=== PATIENT | female | born 1960 | race American Indian/Alaskan Native ===

== ENCOUNTER 2016-10-02 14:04 | Outpatient (CLI) | payer MEDICARE ==
--- NOTE | 2016-10-02 16:53 | Cat Scan Report ---
CT CHEST WITHOUT CONTRAST: INDICATION: Chest pain. COMPARISON: None similar. FINDINGS: Noncontrast chest CT demonstrates normal heart size. No effusions. Few coronary calcifications. Anemia not excluded. Patent central airway. Assessment of the great vessels and for detecting subtle lymphadenopathy limited due to lack of IV contrast. No aortic aneurysm, however. No definite size significant adenopathy, to the extent assessed. Few small bilateral axillary lymph nodes measure up to approximately 1.3 cm, axial image 24, series 3. Normal imaged thyroid. Slight increased AP chest diameter. Mild scarring in both upper lobes inferiorly. Slight lower lobe bronchiectasis, right more than left. Approximately 6 mm right apical peripheral bulla. No focal suspicious lung masses. Nonspecific distal esophageal wall thickening, not excluded for gastroesophageal reflux and/or hiatal hernia, amongst others. Few upper abdominal images demonstrate absent gallbladder and an incompletely imaged approximately 3.3 cm partly exophytic dominant right renal mass inferiorly as on axial image 262, series 2 with attenuations ranging between 15-33 HU. Approximately 1.3 cm left upper renal cortical simple cyst also noted. Slight lower thoracic spine degenerative spurring to the right. CONCLUSION: 1. No acute chest CT abnormality on this unenhanced exam with few incidental findings, including suspected COPD, as above. 2. Various other findings, as above, including bilateral renal lesions, possibly complex and not excluded neoplastic on the right. Thank you for the opportunity to participate in this patient's care.
--- NOTE | 2016-10-03 14:01 | Cat Scan Report ---
CT OF THE ABDOMEN WITHOUT CONTRAST: HISTORY: Abdominal pain. FINDINGS: Comparison is made to a previous study on May 10, 2014. Sensitivity is diminished without intravenous and oral contrast. The liver and spleen appear normal in size and configuration with no focal abnormalities. The pancreas is normal. The adrenal glands are unremarkable. A hypodense mass in the lower pole of the right kidney has increased in size now measuring 4.2 cm in diameter as opposed to 2.8 cm on the previous study. A smaller hypodense mass in the cortex of the lower pole measures less than 1 cm and is unchanged. A 1.5 cm hypodense mass in the upper pole of the left kidney is stable. There are no other renal abnormalities. There is no adenopathy within the retroperitoneum. IMPRESSION: Increase in size in a hypodense mass in the lower pole of the right kidney. Smaller hypodense masses in the lower pole of the right kidney and in the left kidney are stable. These probably represent cysts but further evaluation of the right renal mass is recommended either with CT examination with IV contrast, MRI with and without contrast or renal ultrasound.
== END 2016-10-02 14:05 | disposition home or self-care (01) ==
LOC: CT 14:04
PROVIDERS: ATTEND Family Medicine
DX: N28.1 Cyst of kidney, acquired (principal); J47.9 Bronchiectasis, uncomplicated; I25.10 Atherosclerotic heart disease of native coronary artery without angina pectoris; N28.89 Other specified disorders of kidney and ureter; R10.9 Unspecified abdominal pain; R07.9 Chest pain, unspecified; Z90.49 Acquired absence of other specified parts of digestive tract
CPT/HCPCS: 36415; 71250; 74150; 82565; 84520

== ENCOUNTER 2017-06-18 11:19 | Outpatient (CLI) | payer MEDICARE ==
--- NOTE | 2017-06-18 14:01 | Cat Scan Report ---
CT of the abdomen and pelvis without contrast. History: Hematuria. Findings: Comparison is made to the previous study on October 02, 2016. The liver and spleen are normal in size and configuration with no focal abnormalities. The spleen is unremarkable. The pancreas and adrenal glands are normal. Since the previous study, the round hypodense mass which is seen in the lateral aspect of the right kidney demonstrates marked interval change with somewhat irregular contour, marked decrease in size, and the presence of multiple amorphous hyperdensity/calcification. There are reactive changes in the perinephric fat with thickening of Gerota's fascia. A 1.4 cm in diameter hypodense mass in the upper pole of the left kidney is unchanged. There no pelvic masses or abnormal fluid collections. There is no evidence of appendicitis. Impression: 1. Marked interval change in the appearance of a previously noted right renal mass which has decreased in size and changed in shape with multiple amorphous and curvilinear calcifications. They're associated reactive changes in Gerota's fascia and the perinephric fat. This most likely represents interval rupture of a hemorrhagic cyst with calcifications and perinephric reactive changes. I would recommend a followup study in 6 months to confirm stability. 2. Stable left renal cyst.
== END 2017-06-18 11:20 | disposition home or self-care (01) ==
LOC: CT 11:19
PROVIDERS: ATTEND Family Medicine
DX: N28.1 Cyst of kidney, acquired (principal); N28.89 Other specified disorders of kidney and ureter; T14.8 Other injury of unspecified body region; X58.XXXA Exposure to other specified factors, initial encounter; Y93.9 Activity, unspecified; Y92.89 Other specified places as the place of occurrence of the external cause; Y99.8 Other external cause status
CPT/HCPCS: 74176

== ENCOUNTER 2017-08-17 05:37 | Inpatient (IN) | payer MEDICARE ==
[2017-08-17] MEDS ORDERED: DILAUDID IV ONE (06:04)
[2017-08-17] MEDS ORDERED: ZOFRAN ONE (06:58)
[2017-08-17] MEDS ORDERED: NACL 0.9% 1000 ML 1,000 ML ONE (06:59)
[2017-08-17] MEDS ORDERED: NACL 0.9% 1000 ML 1,000 ML IV ONE ×2 (07:13→08:49)
[2017-08-17] MEDS ORDERED: ZOFRAN IV ONE (07:13)
[2017-08-17 07:23] LABS: Basophils % (Auto) 0.9 % (0.0-1.8); Hematocrit 28.2 % (30.3-42.9); Hemoglobin 8.6 gm/dl (10.1-14.3); Mean Corpuscular HGB Conc 31 % (30-34); Mean Corpuscular Hemoglobin 22 pg (28-32); Mean Corpuscular Volume 71 fl (79-97); Platelet Count 232 K/mm3 (140-440); Red Blood Count 3.99 M/mm3 (3.65-5.03)
[2017-08-17 07:38] LABS: Albumin/Globulin Ratio 0.7 %; Bilirubin,Total 0.3 mg/dL (0.1-1.2); Calcium 8.2 mg/dL (8.4-10.2); Chloride 103.1 mmol/L (98-107); Potassium 4.2 mmol/L (3.6-5.0); Total Protein 7.2 g/dL (6.3-8.2)
[2017-08-17] MEDS ORDERED: SUBLIMAZE IV ONE (08:39)
--- NOTE | 2017-08-17 08:47 | Emergency Department Report ---
HPI - General Chief Complaint: Abdominal Pain Time Seen by Provider: 08/17/17 08:32 - HPI HPI: Room 6 The patient is a 57-year-old female presenting with a chief complaint of abdominal pain. She states her symptoms began last night at 23:30 with epigastric aching which felt similar to her small bowel obstruction she had 3 years ago. Patient is to nausea and vomiting but denies diarrhea or fever. Patient denies chest pain. The patient currently feels her abdominal pain score of 8/10 Location: Abdomen Duration: Constant since last night Quality: Aching Severity:8/10 Modifying factors: [see above] Context: [see above] Mode of transportation: [not driving] ED Past Medical Hx - Past Medical History Previous Medical History?: Yes Hx Hypertension: Yes Hx Diabetes: Yes Additional medical history: lupus - Surgical History Past Surgical History?: Yes Hx Cholecystectomy: Yes Additional Surgical History: COLON RESECTION secondary to "not working". HYSTERECTOMY, right partial nephrectomy secondary to benign mass - Social History Smoking Status: Former Smoker (occasional) Substance Use Type: None - Medications Home Medications: Home Medications Medication Instructions Recorded Confirmed Last Taken Type Clonidine HCl [Catapres] 0.3 mg PO BID 09/08/13 09/14/16 01/20/15 History Cyclobenzaprine HCl [FLEXERIL] 10 mg PO BID 09/08/13 09/14/16 01/19/15 History Esomeprazole Magnesium [NexIUM] 40 mg PO QDAY 09/08/13 09/14/16 01/19/15 History Hydroxychloroquine [Plaquenil] 200 mg PO DAILY 09/08/13 09/14/16 01/19/15 History Methadone [Dolophine] 10 mg PO DAILY 09/08/13 09/14/16 01/19/15 History Zolpidem [Ambien] 10 mg PO HS PRN 09/08/13 09/14/16 01/19/15 History amLODIPine [Norvasc] 10 mg PO DAILY 09/08/13 09/14/16 01/19/15 History predniSONE [Deltasone] 10 mg PO DAILY 09/08/13 09/14/16 01/19/15 History HYDROcodone/APAP 5-325 [Martin 1 each PO Q6HR PRN #20 tablet 05/10/14 Unknown Rx 5/325] Promethazine [Phenergan] 25 mg PO Q6H PRN #20 tablet 05/10/14 Unknown Rx Aspirin EC [Aspirin Enteric Coated 81 mg PO DAILY 01/20/15 09/14/16 01/19/15 History TAB] Carvedilol 25 mg PO BID 01/20/15 09/14/16 01/19/15 History Insulin Regular, Human [HumuLIN R] 2 units SQ BID 01/20/15 09/14/16 01/19/15 History Hydralazine HCl [Apresoline TAB] 50 mg PO Q8HR 09/14/16 09/14/16 Unknown History Pravastatin Sodium [Pravastatin] 10 mg PO QHS 09/14/16 09/14/16 Unknown History Promethazine [Phenergan TAB] 25 mg PO Q6HR PRN 09/14/16 09/14/16 Unknown History oxyCODONE /ACETAMINOPHEN [Percocet 1 tab PO Q6HR PRN 09/14/16 09/14/16 Unknown History 5/325 mg] ED Review of Systems ROS: Stated complaint: ABD PAIN Other details as noted in HPI Constitutional: denies: fever Cardiovascular: denies: chest pain Gastrointestinal: abdominal pain, nausea, vomiting. denies: diarrhea Physical Exam - Physical Exam Vital Signs: Vital Signs 08/17/17 08/17/17 08/17/17 05:50 05:53 06:00 Temperature 98.4 F Pulse Rate 66 Respiratory 20 20 Rate Blood Pressure 197/90 197/90 180/93 O2 Sat by Pulse 97 97 Oximetry Physical Exam: GENERAL: The patient is well-developed well-nourished female lying on stretcher not appearing to be in acute distress. [] HEENT: Normocephalic. Atraumatic. Extraocular motions are intact. Patient has moist mucous membranes. NECK: Supple. Trachea midline CHEST/LUNGS: Clear to auscultation. There is no respiratory distress noted. HEART/CARDIOVASCULAR: Regular. There is no tachycardia. There is no gallop rub or murmur. ABDOMEN: Abdomen is soft, with tenderness to palpation in the midepigastric region. Patient has normal bowel sounds. There is no abdominal distention. SKIN: There is no rash. There is no edema. There is no diaphoresis. NEURO: The patient is awake, alert, and oriented. The patient is cooperative. The patient has normal speech MUSCULOSKELETAL: There is no evidence of acute injury. ED Course Vital Signs 08/17/17 08/17/17 08/17/17 05:50 05:53 06:00 Temperature 98.4 F Pulse Rate 66 Respiratory 20 20 Rate Blood Pressure 197/90 197/90 180/93 O2 Sat by Pulse 97 97 Oximetry - Consultations Consultation #1: 08/17/17 09:51 Surgery paged ED Medical Decision Making - Lab Data Result diagrams: 08/17/17 07:10 08/17/17 07:10 - Radiology Data Radiology results: report reviewed (CT abdomen and pelvis), image reviewed (CT abdomen and pelvis) CT scan of the abdomen and pelvis without IV contrast: Compare to 06/18/17 and 10/02/16. History: Epigastric abdominal pain nausea and vomiting. Findings: Normal lung bases. No pleural or pericardial effusion. Normal liver spleen and pancreas. Gallbladder not visualized. Normal adrenals. Bilaterally there is no significant interval change noted in the kidney parenchyma and the perirenal tissues. Normal bladder. No free intraperitoneal fluid or. No evidence of adenopathy. Normal stomach and duodenum a small sliding hiatal hernia. Fluid-filled mildly distended loops of small bowel are identified at the right lumbar area. No thickening of the wall. There is mild mesenteric stranding with minimal free fluid in the mesentery noted in that region. There is distended loops of colon with air and fecal matter. Most pronounced in the rectosigmoid. No evidence of appendicitis or diverticulitis. Impression: No significant interval change at the kidney parenchyma and perineural tissue compatible previous study. Multiple causes for small bowel findings including inflammatory bowel disease, early ischemic bowel or incomplete small bowel obstruction. Transcribed By: PTP Dictated By: TATI CASH MD Electronically Authenticated By: TATI CASH MD Signed Date/Time: 08/17/17930 DD/ 3 TD/TT: 08/17/17930 - Differential Diagnosis small bowel obstruction, gastritis, pancreatitis, peptic ulcer disease Critical care attestation.: If time is entered above; I have spent that time in minutes in the direct care of this critically ill patient, excluding procedure time. ED Disposition Clinical Impression: Acute abdominal pain, Partial small bowel obstruction, Nausea & vomiting, Acute renal insufficiency Disposition: OP ADMIT IP TO THIS HOSP Is pt being admited?: Yes Does the pt Need Aspirin: No Condition: Fair Instructions: Abdominal Pain (ED) Referrals: PRIMARY CARE,MD [Primary Care Provider] - 3-5 Days Time of Disposition: 09:58 (hospitalist (Dr Chaparro) notified)
[2017-08-17 09:15] LABS: Bilirubin,Urine NEG (Negative); Blood,Urine NEG (Negative); Ketones,Urine NEG (Negative); Leukocyte Esterase,Urine NEG (Negative); Nitrite,Urine NEG (Negative); Urobilinogen,Urine < 2.0 mg/dL (<2.0); WBC,Urine < 1.0 /HPF (0.0-6.0)
[2017-08-17] MEDS ORDERED: CATAPRES PO ONE (09:32)
--- NOTE | 2017-08-17 09:37 | Cat Scan Report ---
CT scan of the abdomen and pelvis without IV contrast: Compare to 06/18/17 and 10/02/16. History: Epigastric abdominal pain nausea and vomiting. Findings: Normal lung bases. No pleural or pericardial effusion. Normal liver spleen and pancreas. Gallbladder not visualized. Normal adrenals. Bilaterally there is no significant interval change noted in the kidney parenchyma and the perirenal tissues. Normal bladder. No free intraperitoneal fluid or. No evidence of adenopathy. Normal stomach and duodenum a small sliding hiatal hernia. Fluid-filled mildly distended loops of small bowel are identified at the right lumbar area. No thickening of the wall. There is mild mesenteric stranding with minimal free fluid in the mesentery noted in that region. There is distended loops of colon with air and fecal matter. Most pronounced in the rectosigmoid. No evidence of appendicitis or diverticulitis. Impression: No significant interval change at the kidney parenchyma and perineural tissue compatible previous study. Multiple causes for small bowel findings including inflammatory bowel disease, early ischemic bowel or incomplete small bowel obstruction.
--- NOTE | 2017-08-17 12:38 | History and Physical Report ---
History of Present Illness Date of examination: 08/17/17 Date of admission: 08/17/17 09:57 Chief complaint: Abdominal pain History of present illness: 57-year-old -M[place] female with past medical history significant for hypertension, diabetes, lupus presented to the emergency department with complaints of abdominal pain started last night, the pain is sharp, progressively worse 10 out of 10 in intensity, with no radiation, not associated diarrhea or constipation. Patient is complaining nausea and vomiting of yellowish material 4. Patient had a bowel movement after she presented to the emergency department. Patient denied fever, chills, chest pain. REVIEW OF SYSTEMS: GENERAL: no weight change, no fatigue, no fever HEAD: no head ache EYES: no blurry vision, no acute visual loss EARS: no hearing loss, no discharge, no earache NOSE: no stuffiness, no sneezing, no discharge MOUTH, THROAT AND NECK: no bleeding gums, no sore throat, no swollen neck CARDIAC: no palpitations, no dyspnea on exertion, no orthopnea, no PND, no edema , no chest pain RESPIRATORY: no shortness of breath, no wheeze, no cough, no sputum, no hemoptysis, no asthma GI: As stated in the HPI. URINARY: no change in frequency, no urgency, no polyuria, no hematuria, no incontinence MUSCULOSKELETAL: no muscle weakness, no pain, no joint stiffness NEUROLOGIC: no loss of sensation/numbness, no tingling, no tremors, no weakness/ paralysis HEMATOLOGIC: no anemia, no easy bruising SKIN: no rashes ENDOCRINE: no heat/cold intolerance, no polyuria, no polydipsia, no thyroid problems, + diabetes PSYCHIATRIC: no anxiety, no depression, no suicidal ideations Past History Past Medical History: diabetes, hypertension, other (Lupus) Past Surgical History: cholecystectomy, hysterectomy, bowel surgery, Other ( nephrectomy) Social history: denies: smoking, alcohol abuse, prescription drug abuse, IV drug use, full code Family history: no significant family history Medications and Allergies Allergies Allergy/AdvReac Type Severity Reaction Status Date / Time VICTORINO Inhibitors Allergy Unknown Verified 08/17/17 06:00 Sulfa (Sulfonamide AdvReac Severe TONGUE Verified 08/17/17 06:00 Antibiotics) SWELLS Home Medications Medication Instructions Recorded Confirmed Last Taken Type Clonidine HCl [Catapres] 0.3 mg PO BID 12/09/14/16 01/20/15 History Cyclobenzaprine HCl [FLEXERIL] 10 mg PO BID 09/08/13 09/14/16 01/19/15 History Esomeprazole Magnesium [NexIUM] 40 mg PO QDAY 09/08/13 09/14/16 01/19/15 History Hydroxychloroquine [Plaquenil] 200 mg PO DAILY 09/08/13 09/14/16 01/19/15 History Methadone [Dolophine] 10 mg PO DAILY 09/08/13 09/14/16 01/19/15 History Zolpidem [Ambien] 10 mg PO HS PRN 09/08/13 09/14/16 01/19/15 History amLODIPine [Norvasc] 10 mg PO DAILY 09/08/13 09/14/16 01/19/15 History predniSONE [Deltasone] 10 mg PO DAILY 09/08/13 09/14/16 01/19/15 History HYDROcodone/APAP 5-325 [Kopperl 1 each PO Q6HR PRN #20 tablet 05/10/14 Unknown Rx 5/325] Promethazine [Phenergan] 25 mg PO Q6H PRN #20 tablet 05/10/14 Unknown Rx Aspirin EC [Aspirin Enteric Coated 81 mg PO DAILY 01/20/15 09/14/16 01/19/15 History TAB] Carvedilol 25 mg PO BID 01/20/15 09/14/16 01/19/15 History Insulin Regular, Human [HumuLIN R] 2 units SQ BID 01/20/15 09/14/16 01/19/15 History Hydralazine HCl [Apresoline TAB] 50 mg PO Q8HR 09/14/16 09/14/16 Unknown History Pravastatin Sodium [Pravastatin] 10 mg PO QHS 09/14/16 09/14/16 Unknown History Promethazine [Phenergan TAB] 25 mg PO Q6HR PRN 09/14/16 09/14/16 Unknown History oxyCODONE /ACETAMINOPHEN [Percocet 1 tab PO Q6HR PRN 09/14/16 09/14/16 Unknown History 5/325 mg] Active Meds: Active Medications Clonidine HCl (Catapres-Tts Patch) 0.3 mg TD QWEEK SKYLER Hydralazine HCl (Apresoline) 20 mg IV Q4HR PRN PRN Reason: Hypertension Sodium Chloride (Nacl 0.9% 1000 Ml) 1,000 mls @ 125 mls/hr IV ONCE ONE Stop: 08/17/17 16:48 Last Admin: 08/17/17 09:50 Dose: 125 mls/hr Lactated Ringer's (Lactated Ringers) 2,000 mls @ 100 mls/hr IV DIRECT SKYLER Exam - Physical Exam Narrative exam: Not in cardiopulmonary distress. The patient appeared well nourished and normally developed. Vital signs as documented. Head exam is unremarkable. No scleral icterus . Neck is without jugular venous distension, thyromegaly, or carotid bruits. Lungs are clear to auscultation. Cardiac exam reveals regular rate and Rhythm. First and second heart sounds normal. No murmurs, rubs or gallops. Abdominal exam reveals mild abdominal tenderness, with no guarding or rigidity. Extremities are nonedematous and both femoral and pedal pulses are normal. ART EDUCATOR: Alert and oriented 3. No focal weakness. - Constitutional Vitals: Temp Pulse Resp BP Pulse Ox 98.4 F 71 12 171/82 97 08/17/17 05:53 08/17/17 09:40 08/17/17 11:32 08/17/17 09:55 08/17/17 06:00 Results - Labs CBC & Chem 7: 08/17/17 07:10 08/17/17 07:10 Labs: Laboratory Last Values WBC 5.0 K/mm3 (4.5-11.0) 08/17/17 07:10 RBC 3.99 M/mm3 (3.65-5.03) 08/17/17 07:10 Hgb 8.6 gm/dl (10.1-14.3) L 08/17/17 07:10 Hct 28.2 % (30.3-42.9) L 08/17/17 07:10 MCV 71 fl (79-97) L 08/17/17 07:10 MCH 22 pg (28-32) L 08/17/17 07:10 MCHC 31 % (30-34) 08/17/17 07:10 RDW 20.0 % (13.2-15.2) H 08/17/17 07:10 Plt Count 232 K/mm3 (140-440) 08/17/17 07:10 Lymph % (Auto) 12.0 % (13.4-35.0) L 08/17/17 07:10 Payne % (Auto) 12.4 % (0.0-7.3) H 08/17/17 07:10 Eos % (Auto) 1.0 % (0.0-4.3) 08/17/17 07:10 Baso % (Auto) 0.9 % (0.0-1.8) 08/17/17 07:10 Lymph # 0.6 K/mm3 (1.2-5.4) L 08/17/17 07:10 Payne # 0.6 K/mm3 (0.0-0.8) 08/17/17 07:10 Eos # 0.0 K/mm3 (0.0-0.4) 08/17/17 07:10 Baso # 0.0 K/mm3 (0.0-0.1) 08/17/17 07:10 Seg Neutrophils % 73.7 % (40.0-70.0) H 08/17/17 07:10 Seg Neutrophils # 3.7 K/mm3 (1.8-7.7) 08/17/17 07:10 Sodium 138 mmol/L (137-145) 08/17/17 07:10 Potassium 4.2 mmol/L (3.6-5.0) 08/17/17 07:10 Chloride 103.1 mmol/L (98-107) 08/17/17 07:10 Carbon Dioxide 24 mmol/L (22-30) 08/17/17 07:10 Anion Gap 15 mmol/L 08/17/17 07:10 BUN 25 mg/dL (7-17) H 08/17/17 07:10 Creatinine 2.0 mg/dL (0.7-1.2) H 08/17/17 07:10 Estimated GFR 31 ml/min 08/17/17 07:10 BUN/Creatinine Ratio 13 % 08/17/17 07:10 Glucose 129 mg/dL (65-100) H 08/17/17 07:10 Lactic Acid 0.50 mmol/L (0.7-2.0) L 08/17/17 07:15 Calcium 8.2 mg/dL (8.4-10.2) L 08/17/17 07:10 Total Bilirubin 0.30 mg/dL (0.1-1.2) 08/17/17 07:10 AST 13 units/L (5-40) 08/17/17 07:10 ALT 6 units/L (7-56) L 08/17/17 07:10 Alkaline Phosphatase 105 units/L (35-129) 08/17/17 07:10 Total Protein 7.2 g/dL (6.3-8.2) 08/17/17 07:10 Albumin 3.0 g/dL (3.9-5) L 08/17/17 07:10 Albumin/Globulin Ratio 0.7 % 08/17/17 07:10 Lipase 43 units/L (13-60) 08/17/17 07:10 Urine Color Yellow (Yellow) 08/17/17 09:06 Urine Turbidity Clear (Clear) 08/17/17 09:06 Urine pH 7.0 (5.0-7.0) 08/17/17 09:06 Ur Specific Marlow 1.013 (1.003-1.030) 08/17/17 09:06 Urine Protein 100 mg/dl mg/dL (Negative) 08/17/17 09:06 Urine Glucose (UA) Neg mg/dL (Negative) 08/17/17 09:06 Urine Ketones Neg mg/dL (Negative) 08/17/17 09:06 Urine Blood Neg (Negative) 08/17/17 09:06 Urine Nitrite Neg (Negative) 08/17/17 09:06 Urine Bilirubin Neg (Negative) 08/17/17 09:06 Urine Urobilinogen < 2.0 mg/dL (<2.0) 08/17/17 09:06 Ur Leukocyte Esterase Neg (Negative) 08/17/17 09:06 Urine WBC (Auto) < 1.0 /HPF (0.0-6.0) 08/17/17 09:06 Urine RBC (Auto) 1.0 /HPF (0.0-6.0) 08/17/17 09:06 U Epithel Cells (Auto) 2.0 /HPF (0-13.0) 08/17/17 09:06 - Imaging and Cardiology US - abdomen: report reviewed (partial small bowel obstruction) Assessment and Plan Assessment and plan: Partial small bowel obstruction Acute kidney injury Uncontrolled Hypertension Diabetes mellitus (hyperglycemia) History of lupus - Patient is on IV fluids, NG tube, pain control, surgery consulted, nothing by mouth - Sliding scale insulin for diabetes, and by mouth medications to IV DVT prophylaxis - SCD because it may be a possibility of surgery Disposition - Admit to surgical floor Advance Directives: Yes VTE prophylaxis?: Mechanical Reason for no VTE Prophylaxis: Surgical contraindication Plan of care discussed with patient/family: Yes
[2017-08-17] MEDS ORDERED: D50W (25GM) Vial IV PRN (13:00)
[2017-08-17] MEDS: LACTATED RINGERS 2,000 ML IV SCH (13:46)
[2017-08-17] MEDS: DILAUDID IV PRN ×2 (13:46→20:57)
[2017-08-17] MEDS: CATAPRES-TTS PATCH TD SCH (14:11)
--- NOTE | 2017-08-17 14:40 | XRay Report ---
FINAL REPORT EXAM: XR ABDOMEN 1V AP HISTORY: ng tube placement TECHNIQUE: Supine abdomen PRIORS: None. FINDINGS: Nasogastric tube terminates in proximal stomach. It may be further advanced into mid to distal stomach. The bowel gas pattern is nonspecific and nonobstructive. There is some gas within normal caliber small bowel loops and minimal gas scattered in the colon. Pelvic calcifications are probably vascular. In appropriate clinical setting, a distal ureteral stone cannot be entirely excluded. IMPRESSION: Nonspecific, nonobstructive abdomen. Nasogastric tube terminates in proximal stomach. It may be advanced into mid to distal stomach.
--- NOTE | 2017-08-17 15:43 | XRay Report ---
FINAL REPORT EXAM: XR ABDOMEN 1V AP HISTORY: DOBHOFF ADJUSTMENT TECHNIQUE: Supine abdomen PRIORS: 08/17/2017 at 18:58 FINDINGS: The bowel gas pattern is nonspecific and nonobstructive. There is air within normal caliber small bowel loops. There is minimal gas in the colon. Nasogastric tube is unchanged in position; it terminates in proximal stomach. It may be advanced into mid to distal stomach. Pelvic calcifications are likely vascular. IMPRESSION: The nasogastric tube is unchanged in position with tip still in proximal stomach. Suggest further advancement into mid to distal stomach. Nonspecific, nonobstructive abdomen.
[2017-08-17] MEDS: NOVOLOG SUB-Q SCH (16:32)
[2017-08-17] MEDS: ZOFRAN IV PRN (20:56)
[2017-08-18] MEDS: NOVOLOG SUB-Q SCH ×5 (00:17→21:54)
--- NOTE | 2017-08-18 00:26 | Consultation ---
HISTORY OF PRESENT ILLNESS: I was called by Dr. Chaparro to see this patient. She is a 57-year-old black female. She is a known case of hypertension, diabetes mellitus, lupus and multiple abdominal operations. 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 Her CBC showed a white count of 5000, hemoglobin was 8.6. The potassium is 4.2 and the sodium was 138. The creatinine is 2.0. She had a CAT scan that showed evidence of multiple dilated small bowel loops with thickened wall. There were mildly distended as per the radiology note, there is no thickening there. There is some stranding in the base of the mesentery. There are some distended loops of the colon with air and fecal material. These were mainly in the rectosigmoid aspect. PAST MEDICAL HISTORY: The patient had 3 abdominal operations. The first was an open cholecystectomy, the second one was a partial colon resection and a third one she had an exploration of the abdomen as well. She was in this hospital. I saw her here about 3 years ago because of the same problem. This was handled with IV fluids and NG suction. PHYSICAL EXAMINATION: GENERAL: At this point showed a thin, slim black female. She looks older than her stated age. HEAD AND NECK: Negative. BREASTS: Symmetrical. She had a mammogram that was negative. CHEST: Essentially clear. HEART: Sound normal. ABDOMEN: Protuberant, moderately severe tenderness all through a port in the epigastric area. EXTREMITIES: Showed no sign of any edema. IMPRESSION AND PLAN: Abdominal distention with nausea and vomiting with the radiological evidence of dilated small bowel loops with thickened wall, status post cholecystectomy open and partial colon resection as well as partial right nephrectomy from what she told me it was for a tumor there. I had a lengthy talk with the patient and her daughter as I need to keep her in the hospital, keep her n.p.o. with IV fluids and NG suction. We will repeat her KUB in the morning and we will go from there. JOB# [id number] HEIDI/FRAN
[2017-08-18] MEDS: ZOFRAN IV PRN ×3 (04:01→22:00)
[2017-08-18] MEDS: DILAUDID IV PRN ×5 (04:02→22:00)
[2017-08-18] MEDS: LACTATED RINGERS 2,000 ML IV SCH (04:06)
[2017-08-18] MEDS: APRESOLINE IV PRN ×2 (04:13→12:41)
--- NOTE | 2017-08-18 08:56 | XRay Report ---
KUB: SBO. A nasogastric tube is present. There is a generally unremarkable bowel gas pattern with no evidence of bowel dilatation at this time. No free air. No soft tissue mass. Compared to prior examination of August 17 there is diminished small bowel gas. Impression: Resolved small bowel dilatation with nasogastric tube.
[2017-08-18 10:52] LABS: Calcium 8.3 mg/dL (8.4-10.2)
[2017-08-18 10:53] LABS: Chloride 101.3 mmol/L (98-107)
--- NOTE | 2017-08-18 10:54 | XRay Report ---
Portable chest: SOB. The heart and is slightly enlarged. There is mild vascular congestion and mild perivascular edema. There is either mild atelectasis or small effusion at the left lung base. A nasogastric tube is in good position. Impression: Findings consistent with fluid overload.
[2017-08-18] MEDS ORDERED: PNEUMOVAX 23 IM ONE (12:00)
[2017-08-18] MEDS ORDERED: Fluarix Quad 2017-2018(36 MOS+ IM ONE (12:00)
--- NOTE | 2017-08-18 12:43 | Consultation ---
History of Present Illness - Reason for Consult Consult date: 08/18/17 acute renal failure, chronic renal failure - History of Present Illness Ms Barber is a 57 y/o lady with a PMH of HTN, DM, SLE, CKD who sees my associate Dr oRdgers in his CKD clinic who has been admitted to the [facility] with abdominal pain. Pt has also had nausea and vomiting along with low apetite. She denies CP , fever, SHOB, diarrhea, dysuria. She had a BM yesterday. Pt was found to have Acute on CKD on labs in the ER. She feels like she may have gotten dehydrated at home. Pt had a CT abdomen done without contrast that showed partial SBO. ROS: As in HPI otherwise 12 point review of systems -ve Past History Past Medical History: diabetes, hypertension, other (Lupus) Past Surgical History: cholecystectomy, hysterectomy, bowel surgery, Other ( nephrectomy) Social history: denies: smoking, alcohol abuse, prescription drug abuse, IV drug use, full code Family history: no significant family history Medications and Allergies Allergies Allergy/AdvReac Type Severity Reaction Status Date / Time YEVGENIY Inhibitors Allergy Unknown Verified 08/17/17 06:00 Sulfa (Sulfonamide AdvReac Severe TONGUE Verified 08/17/17 06:00 Antibiotics) SWELLS Home Medications Medication Instructions Recorded Confirmed Last Taken Type Clonidine HCl [Catapres] 0.3 mg PO BID 09/08/13 09/14/16 01/20/15 History Cyclobenzaprine HCl [FLEXERIL] 10 mg PO BID 09/08/13 09/14/16 01/19/15 History Esomeprazole Magnesium [NexIUM] 40 mg PO QDAY 09/08/13 09/14/16 01/19/15 History Hydroxychloroquine [Plaquenil] 200 mg PO DAILY 09/08/13 09/14/16 01/19/15 History Methadone [Dolophine] 10 mg PO DAILY 09/08/13 09/14/16 01/19/15 History Zolpidem [Ambien] 10 mg PO HS PRN 09/08/13 09/14/16 01/19/15 History amLODIPine [Norvasc] 10 mg PO DAILY 09/08/13 09/14/16 01/19/15 History predniSONE [Deltasone] 10 mg PO DAILY 09/08/13 09/14/16 01/19/15 History HYDROcodone/APAP 5-325 [[place] 1 each PO Q6HR PRN #20 tablet 05/10/14 Unknown Rx 5/325] Promethazine [Phenergan] 25 mg PO Q6H PRN #20 tablet 05/10/14 Unknown Rx Aspirin EC [Aspirin Enteric Coated 81 mg PO DAILY 01/20/15 09/14/16 01/19/15 History TAB] Carvedilol 25 mg PO BID 01/20/15 09/14/16 01/19/15 History Insulin Regular, Human [HumuLIN R] 2 units SQ BID 01/20/15 09/14/16 01/19/15 History Hydralazine HCl [Apresoline TAB] 50 mg PO Q8HR 09/14/16 09/14/16 Unknown History Pravastatin Sodium [Pravastatin] 10 mg PO QHS 09/14/16 09/14/16 Unknown History Promethazine [Phenergan TAB] 25 mg PO Q6HR PRN 09/14/16 09/14/16 Unknown History oxyCODONE /ACETAMINOPHEN [Percocet 1 tab PO Q6HR PRN 09/14/16 09/14/16 Unknown History 5/325 mg] Active Meds: Active Medications Clonidine HCl (Catapres-Tts Patch) 0.3 mg TD Cueva SKYLER Last Admin: 08/17/17 14:11 Dose: 0.3 mg Dextrose (D50w (25gm) Vial) 25 gm IV PRN PRN PRN Reason: HYPOGLYCEMIA Hydralazine HCl (Apresoline) 20 mg IV Q4H PRN PRN Reason: Hypertension Last Admin: 08/18/17 04:13 Dose: 20 mg Hydromorphone HCl (Dilaudid) 1 mg IV Q4H PRN PRN Reason: Pain , Severe (7-10) Last Admin: 08/18/17 12:30 Dose: 1 mg Sodium Chloride (Nacl 0.9% 1000 Ml) 1,000 mls @ 100 mls/hr IV DIRECT SKYLER Insulin Aspart (Novolog) 0 units SUB-Q ACHS SKYLER PRN Reason: Protocol Last Admin: 08/18/17 07:52 Dose: Not Given Methylprednisolone Sodium Succinate (Solu-Medrol) 20 mg IV Q12HR SKYLER Last Admin: 08/18/17 08:42 Dose: 20 mg Ondansetron HCl (Zofran) 4 mg IV Q8H PRN PRN Reason: N/V unrelieved by Yonis Last Admin: 08/18/17 04:01 Dose: 4 mg Exam - Vital Signs Vital signs: Vital Signs BP 197/90 08/17/17 05:50 - Physical Exam Narrative exam: GE: AAOX3 HEENT: PERRLA Neck: Supple Chest: Coarse BS BL CVS: RRR Abd: BS+ Ext: No cce Psyche: Appropriate mood Results - Lab Results 08/17/17 07:10 08/18/17 09:54 Most recent lab results Calcium 8.3 mg/dL (8.4-10.2) L 08/18/17 09:54 Assessment and Plan Acute Kidney injury possible pre renal: Chronic Kidney disease stage 3: -BL Cr around 1.6 to 1.7 -Possibly may have CKD from from HTN/DM or from lupus. -Has had protein on Urine -May have ARF from pre renal cause from Nausea, vomiting and low apetite. -Change IVFs to NS at 75 cc/hr. Keep close eye on volume status since CXR somewhat congested. Will check TTE for CHF. -Renally dose all meds and avoid nephrotoxic meds -Check Complement levels, Anti DsDNA. UA showed some protein but no red cells. -Pt may need ARB to protect kidney from DM but this can be done outpatient once renal function stable. Partial Small bowel obstruction: -On CT -Had BM yesterday -Per primary and GS -Has NGT Essential hypertension: -Titrate BP meds to keep SBP <130/80 -Avoid ARBs, Yevgeniy inh for now Anemia of chronic disease: -Start Epogen to keep Hg 10-12 -Check Iron panel -Transfuse PRN per primary Hyperkalemia: -Lasix 40 mg IV once -No kayxelate due to SBO for now Diabetes mellitus type 2 on insulin: -On ISS -Per primary Hyperlipidemia, chronic: -Statin -Target LDL <80 Nimesh Dotson MD Nephrology, Hypertension, Dialysis, Transplantation Phone no: [phone]
[2017-08-18 12:48] LABS: Potassium 5.3 mmol/L (3.6-5.0)
--- NOTE | 2017-08-18 12:53 | Progress Note ---
Subjective Narrative: doing better had 4! BMs today , arlen torres . will clamp NG and observ . Objective Vital Signs - 12hr 08/18/17 08/18/17 08/18/17 03:52 03:56 04:02 Temperature 98.1 F Pulse Rate 69 Respiratory 16 16 18 Rate Blood Pressure 188/87 O2 Sat by Pulse 97 Oximetry 08/18/17 08/18/17 08/18/17 04:32 07:53 12:41 Temperature 98.6 F Pulse Rate 82 82 Respiratory 18 18 Rate Blood Pressure 161/72 180/90 O2 Sat by Pulse 93 Oximetry - Labs 08/17/17 07:10 08/18/17 09:54 Diabetes panel 08/18/17 Range/Units 09:54 Sodium 136 L (137-145) mmol/L Potassium 5.3 H D (3.6-5.0) mmol/L Chloride 101.3 (98-107) mmol/L Carbon Dioxide 18 L (22-30) mmol/L BUN 22 H (7-17) mg/dL Creatinine 1.9 H (0.7-1.2) mg/dL Glucose 126 H (65-100) mg/dL Calcium 8.3 L (8.4-10.2) mg/dL Calcium panel 08/18/17 Range/Units 09:54 Calcium 8.3 L (8.4-10.2) mg/dL Pituitary panel 08/18/17 Range/Units 09:54 Sodium 136 L (137-145) mmol/L Potassium 5.3 H D (3.6-5.0) mmol/L Chloride 101.3 (98-107) mmol/L Carbon Dioxide 18 L (22-30) mmol/L BUN 22 H (7-17) mg/dL Creatinine 1.9 H (0.7-1.2) mg/dL Glucose 126 H (65-100) mg/dL Calcium 8.3 L (8.4-10.2) mg/dL Adrenal panel 08/18/17 Range/Units 09:54 Sodium 136 L (137-145) mmol/L Potassium 5.3 H D (3.6-5.0) mmol/L Chloride 101.3 (98-107) mmol/L Carbon Dioxide 18 L (22-30) mmol/L BUN 22 H (7-17) mg/dL Creatinine 1.9 H (0.7-1.2) mg/dL Glucose 126 H (65-100) mg/dL Calcium 8.3 L (8.4-10.2) mg/dL
[2017-08-18] MEDS ORDERED: PROCRIT SUB-Q ONE ×2 (12:57→16:00)
[2017-08-18] MEDS ORDERED: LASIX IV ONE (12:57)
[2017-08-18] MEDS ORDERED: NACL 0.9% 1000 ML 1,000 ML IV SCH ×2 (13:00)
--- NOTE | 2017-08-18 13:46 | Progress Note ---
Assessment and Plan Assessment and plan: Partial small bowel obstruction - On NG tube, Surgery is on board - NPO, IV fluids Acute on chronic kidney injury - slight decrease in creatinine Uncontrolled Hypertension - Continue with IV hydralazine, clonidine patch Diabetes mellitus (hyperglycemia) - SSI - accu check History of lupus - Patient is on solu-medrol DVT prophylaxis - SCD because it may be a possibility of surgery Disposition - continue inpatient care History Interval history: Patient was seen and evaluated this morning, abdominal pain is getting better, but still the patient has abdominal pain. Hospitalist Physical - Physical exam Narrative exam: Not in cardiopulmonary distress. The patient appeared well nourished and normally developed. Vital signs as documented. Head exam is unremarkable. No scleral icterus . Neck is without jugular venous distension, thyromegaly, or carotid bruits. Lungs are clear to auscultation. Cardiac exam reveals regular rate and Rhythm. First and second heart sounds normal. No murmurs, rubs or gallops. Abdominal exam reveals non tender abdomen. Extremities are nonedematous and both femoral and pedal pulses are normal. 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 No focal weakness. - Constitutional Vitals: Temp Pulse Resp BP Pulse Ox 98.6 F 82 18 180/90 93 08/18/17 07:53 08/18/17 12:41 08/18/17 07:53 08/18/17 12:41 08/18/17 07:53 Results - Labs CBC & Chem 7: 08/17/17 07:10 08/18/17 09:54 Labs: Laboratory Last Values WBC 5.0 K/mm3 (4.5-11.0) 08/17/17 07:10 RBC 3.99 M/mm3 (3.65-5.03) 08/17/17 07:10 Hgb 8.6 gm/dl (10.1-14.3) L 08/17/17 07:10 Hct 28.2 % (30.3-42.9) L 08/17/17 07:10 MCV 71 fl (79-97) L 08/17/17 07:10 MCH 22 pg (28-32) L 08/17/17 07:10 MCHC 31 % (30-34) 08/17/17 07:10 RDW 20.0 % (13.2-15.2) H 08/17/17 07:10 Plt Count 232 K/mm3 (140-440) 08/17/17 07:10 Lymph % (Auto) 12.0 % (13.4-35.0) L 08/17/17 07:10 [place] % (Auto) 12.4 % (0.0-7.3) H 08/17/17 07:10 Eos % (Auto) 1.0 % (0.0-4.3) 08/17/17 07:10 Baso % (Auto) 0.9 % (0.0-1.8) 08/17/17 07:10 Lymph # 0.6 K/mm3 (1.2-5.4) L 08/17/17 07:10 [place] # 0.6 K/mm3 (0.0-0.8) 08/17/17 07:10 Eos # 0.0 K/mm3 (0.0-0.4) 08/17/17 07:10 Baso # 0.0 K/mm3 (0.0-0.1) 08/17/17 07:10 Seg Neutrophils % 73.7 % (40.0-70.0) H 08/17/17 07:10 Seg Neutrophils # 3.7 K/mm3 (1.8-7.7) 08/17/17 07:10 Sodium 136 mmol/L (137-145) L 08/18/17 09:54 Potassium 5.3 mmol/L (3.6-5.0) H D 08/18/17 09:54 Chloride 101.3 mmol/L (98-107) 08/18/17 09:54 Carbon Dioxide 18 mmol/L (22-30) L 08/18/17 09:54 Anion Gap 22 mmol/L 08/18/17 09:54 BUN 22 mg/dL (7-17) H 08/18/17 09:54 Creatinine 1.9 mg/dL (0.7-1.2) H 08/18/17 09:54 Estimated GFR 33 ml/min 08/18/17 09:54 BUN/Creatinine Ratio 12 % 08/18/17 09:54 Glucose 126 mg/dL (65-100) H 08/18/17 09:54 POC Glucose 112 (70-105) H 08/18/17 11:57 Lactic Acid 0.50 mmol/L (0.7-2.0) L 08/17/17 07:15 Calcium 8.3 mg/dL (8.4-10.2) L 08/18/17 09:54 Total Bilirubin 0.30 mg/dL (0.1-1.2) 08/17/17 07:10 AST 13 units/L (5-40) 08/17/17 07:10 ALT 6 units/L (7-56) L 08/17/17 07:10 Alkaline Phosphatase 105 units/L (35-129) 08/17/17 07:10 Total Protein 7.2 g/dL (6.3-8.2) 08/17/17 07:10 Albumin 3.0 g/dL (3.9-5) L 08/17/17 07:10 Albumin/Globulin Ratio 0.7 % 08/17/17 07:10 Lipase 43 units/L (13-60) 08/17/17 07:10 Urine Color Yellow (Yellow) 08/17/17 09:06 Urine Turbidity Clear (Clear) 08/17/17 09:06 Urine pH 7.0 (5.0-7.0) 08/17/17 09:06 Ur Specific [place] 1.013 (1.003-1.030) 08/17/17 09:06 Urine Protein 100 mg/dl mg/dL (Negative) 08/17/17 09:06 Urine Glucose (UA) Neg mg/dL (Negative) 08/17/17 09:06 Urine Ketones Neg mg/dL (Negative) 08/17/17 09:06 Urine Blood Neg (Negative) 08/17/17 09:06 Urine Nitrite Neg (Negative) 08/17/17 09:06 Urine Bilirubin Neg (Negative) 08/17/17 09:06 Urine Urobilinogen < 2.0 mg/dL (<2.0) 08/17/17 09:06 Ur Leukocyte Esterase Neg (Negative) 08/17/17 09:06 Urine WBC (Auto) < 1.0 /HPF (0.0-6.0) 08/17/17 09:06 Urine RBC (Auto) 1.0 /HPF (0.0-6.0) 08/17/17 09:06 U Epithel Cells (Auto) 2.0 /HPF (0-13.0) 08/17/17 09:06
[2017-08-18 15:20] LABS: Iron 30 ug/dL (37-170); Total Iron Binding Capacity 248 mcg/dL (250-450)
[2017-08-19] MEDS: DILAUDID IV PRN ×4 (04:40→17:59)
[2017-08-19 05:28] LABS: Basophils % (Auto) 0.3 % (0.0-1.8); Eosinophils % (Auto) 0.1 % (0.0-4.3); Hematocrit 28.6 % (30.3-42.9); Hemoglobin 8.9 gm/dl (10.1-14.3); Mean Corpuscular HGB Conc 31 % (30-34); Mean Corpuscular Hemoglobin 22 pg (28-32); Mean Corpuscular Volume 70 fl (79-97); Platelet Count 255 K/mm3 (140-440); Red Blood Count 4.07 M/mm3 (3.65-5.03); White Blood Count 5.2 K/mm3 (4.5-11.0)
[2017-08-19 05:43] LABS: Calcium 8.4 mg/dL (8.4-10.2); Chloride 98.9 mmol/L (98-107); Potassium 4.1 mmol/L (3.6-5.0)
[2017-08-19] MEDS: ZOFRAN IV PRN ×2 (08:02→16:19)
[2017-08-19] MEDS: APRESOLINE IV PRN ×2 (08:02→19:17)
[2017-08-19] MEDS: NOVOLOG SUB-Q SCH ×3 (08:39→17:15)
--- NOTE | 2017-08-19 09:09 | Query-Kidney Disease ---
Dear Date:__08/19/2017 Tool Keeper/CDS:__May Phone#:__[phone] Exercise your independent professional judgment when responding to query. Questions asked do not imply a particular answer is desired or expected. We greatly appreciate your clarification on this issue. Clinical Documentation States: 57 Year old female was admitted on 08/17/2017 with complaints of abdominal pain. The Hospitalist (Dr. Chaparro) progress note on 08/18/2017 states "Acute on chronic kidney injury - slight decrease in creatinine." Clinical Findings Show: Creatinine: 2.0 GFR: 31 Please Clarify if you mean: Acute Renal Failure with or due to: [ ] Tubular Necrosis [ ] Cortical Necrosis [ ] Shock Kidney [x ] Vasomotor Nephropathy [ ] Lower Tubular Nephrosis [ ] Renal Tubular Stasis [ ] Tubular Nephrosis [ ] Medullary Necrosis [ ] Acute Renal Failure (unspecified) [ ] Other:_Acute on chronic renal failure [ ] Comment/Explanation: Chronic Kidney Disease (Please [place] applicable stage) 3 Stages Description GFR [ ] CKD Stage 1 90 mL/min or more [ ] CKD Stage 2 Mild decrease in Kidney function 60 to 89 mL/min [ x] CKD Stage 3 Moderate decrease in kidney function 30-59 [ ] CKD Stage 4 Severe decrease in kidney function 15-29 [ ] CKD Stage 5 Kidney failure; requiring dialysis or transplantation <15 [ ] ESRD Patient requiring dialysis for > 3 months or kidney transplant irrespective of level of GFR; Applicable for 1 year after kidney transplant [ ] Other: [ ] Comment/Explanation: Present on Admission: [ x] Yes (Y) [ ] Clinically undeterminable (W) [ ] No (N) Please also document response in your Progress Notes and/or Discharge Summary and indicate if the condition was present on admission MTDD
--- NOTE | 2017-08-19 09:24 | XRay Report ---
KUB: 08/19/17 08:00:00 CLINICAL: Followup small bowel obstruction. COMPARISON: 08/18/17 FINDINGS: A few air-filled but nondilated loops of small bowel. Mild colon gas with stool in the distal colon. A nasogastric tube tip is in the distal stomach and unchanged. No pneumoperitoneum. Phleboliths in the pelvis. The bones and soft tissues are normal. IMPRESSION: Negative abdomen.
--- NOTE | 2017-08-19 10:48 | XRay Report ---
AP chest x-ray. History: Dyspnea. Findings: The heart is mildly enlarged with persistent but slightly improved vascular congestion. The pulmonary vessels are more distinct. Impression: Mild improvement as described.
--- NOTE | 2017-08-19 11:43 | Progress Note ---
Assessment and Plan Acute Kidney injury possible pre renal vs cardiorenal. Chronic Kidney disease stage 3: -BL Cr around 1.6 to 1.7 -Possibly may have CKD from from HTN/DM or from lupus. -Has had protein on Urine -CXR congested, TTE shows LVEF 40-45%. IVFs stopped. Lasix diuresis started. -Renally dose all meds and avoid nephrotoxic meds -Ordered Complement levels, Anti DsDNA. UA showed some protein but no red cells. -Pt may need ARB to protect kidney from DM but this can be done outpatient once renal function stable. Partial Small bowel obstruction: -On CT -Per primary and GS -Has NGT Acute on chronic systolic congestive heart failure: -TTE shows LVEF 40-45%, CXR congested. -IVFs stopped, Lasix diuresis started. -Recommend Cardiology consult. Essential hypertension: -Titrate BP meds to keep SBP <130/80 -Avoid ARBs, Yevgeniy inh for now Anemia of chronic disease: -Start Epogen to keep Hg 10-12 -Transfuse PRN per primary Hyperkalemia: -Improved with lasix yesterday. Diabetes mellitus type 2 on insulin: -On ISS -Per primary Hyperlipidemia, chronic: -Statin -Target LDL <80 Plan d/w Dr Chaparro. Nimesh Dotson MD Nephrology, Hypertension, Dialysis, Transplantation Phone no: [phone] Subjective Date of service: 08/19/17 Interval history: Feeling Short of breath. Making urine. Objective - Exam Narrative Exam: GE: AAOX3 HEENT: PERRLA Neck: Supple Chest: BL Crackles CVS: RRR Abd: BS+ Ext: No cce Psyche: Appropriate mood - Vital Signs Vital signs: Vital Signs - 12hr 08/19/17 08/19/17 08/19/17 07:52 08:02 09:03 Temperature 98.4 F Pulse Rate 78 Respiratory 20 Rate Blood Pressure 215/113 210/100 Blood Pressure 180/100 [Right] O2 Sat by Pulse 92 Oximetry - Lab 08/19/17 04:59 08/19/17 04:59 Most recent lab results Calcium 8.4 mg/dL (8.4-10.2) 08/19/17 04:59 Urine Creatinine 53.2 mg/dL (0.1-20.0) H 08/18/17 14:58 Urine Sodium 118 mmol/L 08/18/17 14:58
--- NOTE | 2017-08-19 13:09 | Consultation ---
History of Present Illness Consult date: 08/19/17 Consult reason: congestive heart failure History of present illness: 57-year-old woman who presented to the hospital 2 days ago with small bowel obstruction. She is on conservative management with NG tube suction, and bowel rest. Last night, she began to complain of shortness of breath and orthopnea, chest x-ray this morning revealed cardiomegaly and interstitial pulmonary edema. Cardiac consultation was requested for further assessment. Otherwise, the patient looks and feels well, with no chest pain and no edema. EKG is in normal sinus rhythm, inferior Q waves of an old inferior myocardial infarction, no acute ST or T-wave changes. Echocardiogram demonstrates mild left ventricle systolic dysfunction with ejection fraction 40-45%. Comorbidities include a history of peripheral vascular disease, status post angioplasty of the arterial system in the left lower extremity done 3 years ago. There is no report of significant prior coronary artery disease. A remote cardiac catheterization was negative per patient report, and a recent outpatient thallium stress test was also negative. Additional comorbidities include chronic kidney disease, creatinine currently is 2.0. She has chronic hypertension and diabetes. Past History Past Medical History: diabetes, hypertension, PVD, other (Lupus) Past Surgical History: cholecystectomy, hysterectomy, bowel surgery, Other ( nephrectomy) Social history: denies: smoking, alcohol abuse, prescription drug abuse, IV drug use, full code Family history: no significant family history Medications and Allergies Allergies Allergy/AdvReac Type Severity Reaction Status Date / Time VICTORINO Inhibitors Allergy Unknown Verified 08/17/17 06:00 Sulfa (Sulfonamide AdvReac Severe TONGUE Verified 08/17/17 06:00 Antibiotics) SWELLS Home Medications Medication Instructions Recorded Confirmed Last Taken Type Clonidine HCl [Catapres] 0.3 mg PO BID 09/08/13 08/18/17 01/20/15 History Cyclobenzaprine HCl [FLEXERIL] 10 mg PO BID 09/08/13 08/18/17 01/19/15 History Esomeprazole Magnesium [NexIUM] 40 mg PO QDAY 09/08/13 08/18/17 01/19/15 History Hydroxychloroquine [Plaquenil] 200 mg PO DAILY 09/08/13 08/18/17 01/19/15 History Methadone [Dolophine] 10 mg PO DAILY 09/08/13 08/18/17 01/19/15 History Zolpidem [Ambien] 10 mg PO HS PRN 09/08/13 08/18/17 01/19/15 History amLODIPine [Norvasc] 10 mg PO DAILY 09/08/13 08/18/17 01/19/15 History predniSONE [Deltasone] 10 mg PO DAILY 09/08/13 08/18/17 01/19/15 History HYDROcodone/APAP 5-325 [[place] 1 each PO Q6HR PRN #20 tablet 05/10/14 08/18/17 Unknown Rx 5/325] Promethazine [Phenergan] 25 mg PO Q6H PRN #20 tablet 05/10/14 08/18/17 Unknown Rx Aspirin EC [Aspirin Enteric Coated 81 mg PO DAILY 01/20/15 08/18/17 01/19/15 History TAB] Carvedilol 25 mg PO BID 01/20/15 08/18/17 01/19/15 History Insulin Regular, Human [HumuLIN R] 2 units SQ BID 01/20/15 08/18/17 01/19/15 History Hydralazine HCl [Apresoline TAB] 50 mg PO Q8HR 09/14/16 08/18/17 Unknown History Pravastatin Sodium [Pravastatin] 10 mg PO QHS 09/14/16 08/18/17 Unknown History Promethazine [Phenergan TAB] 25 mg PO Q6HR PRN 09/14/16 08/18/17 Unknown History oxyCODONE /ACETAMINOPHEN [Percocet 1 tab PO Q6HR PRN 09/14/16 08/18/17 Unknown History 5/325 mg] Active Meds: Active Medications Clonidine HCl (Catapres-Tts Patch) 0.3 mg TD Cueva SKYLER Last Admin: 08/17/17 14:11 Dose: 0.3 mg Dextrose (D50w (25gm) Vial) 25 gm IV PRN PRN PRN Reason: HYPOGLYCEMIA Furosemide (Lasix) 40 mg IV 0600,1800 SKYLER Hydralazine HCl (Apresoline) 20 mg IV Q4H PRN PRN Reason: Hypertension Last Admin: 08/19/17 08:02 Dose: 20 mg Hydromorphone HCl (Dilaudid) 1 mg IV Q4H PRN PRN Reason: Pain , Severe (7-10) Last Admin: 08/19/17 09:04 Dose: 1 mg Insulin Aspart (Novolog) 0 units SUB-Q ACHS SKYLER PRN Reason: Protocol Last Admin: 08/19/17 12:09 Dose: Not Given Methylprednisolone Sodium Succinate (Solu-Medrol) 20 mg IV Q12HR [facility] Last Admin: 08/19/17 09:05 Dose: 20 mg Ondansetron HCl (Zofran) 4 mg IV Q8H PRN PRN Reason: N/V unrelieved by Yonis Last Admin: 08/19/17 08:02 Dose: 4 mg Review of Systems Cardiovascular: orthopnea, shortness of breath, no chest pain, no palpitations, no rapid/irregular heart beat, no edema, no syncope, no lightheadedness Gastrointestinal: abdominal pain Physical Examination Vital Signs BP 197/90 08/17/17 05:50 General appearance: no acute distress HEENT: Positive: PERRL Neck: Positive: neck supple Cardiac: Positive: Reg Rate and Rhythm Lungs: Positive: Decreased Breath Sounds Neuro: Positive: Grossly Intact Abdomen: Positive: Decreased Bowel Sounds Female genitourinary: deferred Skin: Positive: Clear Extremities: Absent: edema Results 08/19/17 04:59 08/19/17 04:59 CBC 08/19/17 Range/Units 04:59 WBC 5.2 (4.5-11.0) K/mm3 RBC 4.07 (3.65-5.03) M/mm3 Hgb 8.9 L (10.1-14.3) gm/dl Hct 28.6 L (30.3-42.9) % Plt Count 255 (140-440) K/mm3 Lymph # 0.3 L (1.2-5.4) K/mm3 [place] # 0.2 (0.0-0.8) K/mm3 Eos # 0.0 (0.0-0.4) K/mm3 Baso # 0.0 (0.0-0.1) K/mm3 Comprehensive Metabolic Panel 08/19/17 Range/Units 04:59 Sodium 136 L (137-145) mmol/L Potassium 4.1 D (3.6-5.0) mmol/L Chloride 98.9 (98-107) mmol/L Carbon Dioxide 23 (22-30) mmol/L BUN 25 H (7-17) mg/dL Creatinine 2.0 H (0.7-1.2) mg/dL Glucose 161 H (65-100) mg/dL Calcium 8.4 (8.4-10.2) mg/dL EKG interpretations - Telemetry EKG Rhythm: Sinus Rhythm Assessment and Plan - Patient Problems (1) Pulmonary edema Current Visit: Yes Status: Acute Plan to address problem: 57-year-old white male admitted with small bowel obstruction, 2 days into her hospital course she has developed shortness of breath and pulmonary edema on chest x-ray. EKG is sinus rhythm, old inferior myocardial infarction, no acute ST or T-wave changes. Echocardiogram shows left ventricle ejection fraction 40- 45%. Recommendations: Transfer to telemetry, rule out MA protocol with serial cardiac enzymes. Topical nitrates, headaches, beta blockers and oral antiplatelet therapy. Ultimately, invasive cardiac evaluation will be planned based on renal function assessment.
--- NOTE | 2017-08-19 15:15 | Progress Note ---
Assessment and Plan Assessment and plan: Partial small bowel obstruction - On NG tube, Surgery is on board - NPO, follow the [facility] surgery for recommendations - IV fluid discontinued because of pulmonary congestion Chronic systolic CHF - Cardiology consulted, recommended to consider cardiac enzymes, ischemic workup once stable - Transfer to telemetry floor Acute on chronic kidney injury -Nephrology consult appreciated Uncontrolled Hypertension - Continue with IV hydralazine, clonidine patch Diabetes mellitus (hyperglycemia) - SSI - accu check History of lupus - Patient is on solu-medrol DVT prophylaxis - SCD because it may be a possibility of surgery Disposition - continue inpatient care History Interval history: Patient was seen and evaluated this morning, abdominal pain is getting better, but still has some abdominal pain. Patient denies shortness of breath, or chest pain. Hospitalist Physical - Physical exam Narrative exam: Not in cardiopulmonary distress. The patient appeared well nourished and normally developed. Vital signs as documented. Head exam is unremarkable. No scleral icterus . Neck is without jugular venous distension, thyromegaly, or carotid bruits. Lungs are clear to auscultation. Cardiac exam reveals regular rate and Rhythm. First and second heart sounds normal. No murmurs, rubs or gallops. Abdominal exam reveals non tender abdomen. Extremities are nonedematous and both femoral and pedal pulses are normal. 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 No focal weakness. - Constitutional Vitals: Temp Pulse Resp BP Pulse Ox 98.4 F 78 20 180/100 92 08/19/17 07:52 08/19/17 07:52 08/19/17 07:52 08/19/17 09:03 08/19/17 07:52 General appearance: Present: no acute distress Results - Labs CBC & Chem 7: 08/19/17 04:59 08/19/17 04:59 Labs: Laboratory Last Values WBC 5.2 K/mm3 (4.5-11.0) 08/19/17 04:59 RBC 4.07 M/mm3 (3.65-5.03) 08/19/17 04:59 Hgb 8.9 gm/dl (10.1-14.3) L 08/19/17 04:59 Hct 28.6 % (30.3-42.9) L 08/19/17 04:59 MCV 70 fl (79-97) L 08/19/17 04:59 MCH 22 pg (28-32) L 08/19/17 04:59 MCHC 31 % (30-34) 08/19/17 04:59 RDW 20.0 % (13.2-15.2) H 08/19/17 04:59 Plt Count 255 K/mm3 (140-440) 08/19/17 04:59 Lymph % (Auto) 6.6 % (13.4-35.0) L 08/19/17 04:59 [place] % (Auto) 4.6 % (0.0-7.3) 08/19/17 04:59 Eos % (Auto) 0.1 % (0.0-4.3) 08/19/17 04:59 Baso % (Auto) 0.3 % (0.0-1.8) 08/19/17 04:59 Lymph # 0.3 K/mm3 (1.2-5.4) L 08/19/17 04:59 [place] # 0.2 K/mm3 (0.0-0.8) 08/19/17 04:59 Eos # 0.0 K/mm3 (0.0-0.4) 08/19/17 04:59 Baso # 0.0 K/mm3 (0.0-0.1) 08/19/17 04:59 Seg Neutrophils % 88.4 % (40.0-70.0) H 08/19/17 04:59 Seg Neutrophils # 4.6 K/mm3 (1.8-7.7) 08/19/17 04:59 Sodium 136 mmol/L (137-145) L 08/19/17 04:59 Potassium 4.1 mmol/L (3.6-5.0) D 08/19/17 04:59 Chloride 98.9 mmol/L (98-107) 08/19/17 04:59 Carbon Dioxide 23 mmol/L (22-30) 08/19/17 04:59 Anion Gap 18 mmol/L 08/19/17 04:59 BUN 25 mg/dL (7-17) H 08/19/17 04:59 Creatinine 2.0 mg/dL (0.7-1.2) H 08/19/17 04:59 Estimated GFR 31 ml/min 08/19/17 04:59 BUN/Creatinine Ratio 13 % 08/19/17 04:59 Glucose 161 mg/dL (65-100) H 08/19/17 04:59 POC Glucose 142 (70-105) H 08/19/17 11:40 Lactic Acid 0.50 mmol/L (0.7-2.0) L 08/17/17 07:15 Calcium 8.4 mg/dL (8.4-10.2) 08/19/17 04:59 Iron 30 ug/dL (37-170) L 08/18/17 09:54 TIBC 248 mcg/dL (250-450) L 08/18/17 09:54 Total Bilirubin 0.30 mg/dL (0.1-1.2) 08/17/17 07:10 AST 13 units/L (5-40) 08/17/17 07:10 ALT 6 units/L (7-56) L 08/17/17 07:10 Alkaline Phosphatase 105 units/L (35-129) 08/17/17 07:10 NT-Pro-B Natriuret Pep 62924 pg/mL (0-900) H 08/19/17 04:59 Total Protein 7.2 g/dL (6.3-8.2) 08/17/17 07:10 Albumin 3.0 g/dL (3.9-5) L 08/17/17 07:10 Albumin/Globulin Ratio 0.7 % 08/17/17 07:10 Lipase 43 units/L (13-60) 08/17/17 07:10 Urine Color Yellow (Yellow) 08/17/17 09:06 Urine Turbidity Clear (Clear) 08/17/17 09:06 Urine pH 7.0 (5.0-7.0) 08/17/17 09:06 Ur Specific [place] 1.013 (1.003-1.030) 08/17/17 09:06 Urine Protein 100 mg/dl mg/dL (Negative) 08/17/17 09:06 Urine Glucose (UA) Neg mg/dL (Negative) 08/17/17 09:06 Urine Ketones Neg mg/dL (Negative) 08/17/17 09:06 Urine Blood Neg (Negative) 08/17/17 09:06 Urine Nitrite Neg (Negative) 08/17/17 09:06 Urine Bilirubin Neg (Negative) 08/17/17 09:06 Urine Urobilinogen < 2.0 mg/dL (<2.0) 08/17/17 09:06 Ur Leukocyte Esterase Neg (Negative) 08/17/17 09:06 Urine WBC (Auto) < 1.0 /HPF (0.0-6.0) 08/17/17 09:06 Urine RBC (Auto) 1.0 /HPF (0.0-6.0) 08/17/17 09:06 U Epithel Cells (Auto) 2.0 /HPF (0-13.0) 08/17/17 09:06 Urine Eosinophils None seen (None Seen) 08/18/17 14:58 Urine Creatinine 53.2 mg/dL (0.1-20.0) H 08/18/17 14:58 Urine Sodium 118 mmol/L 08/18/17 14:58 Urine Urea Nitrogen 303 08/18/17 14:58 - Imaging and Cardiology Chest x-ray: image reviewed (vascular congestion with cardiomegaly) Imaging and Cardiology: Elevated BNP
--- NOTE | 2017-08-19 16:01 | Fluoroscopy Report ---
Small bowel series. History: Abdominal pain nausea and vomiting. The patient has had subtotal colectomy by history. Findings: The small bowel loops are normal in caliber. There is no mass effect. Contrast enters the distal colon at 40 minutes postingestion. Impression: No evidence of obstruction or other significant finding status post subtotal colectomy.
--- NOTE | 2017-08-19 16:16 | Progress Note ---
Subjective Narrative: still in some pain in the epigastric area , ugi and small bowel follow thru , noobtruction contrast seen in rectum in 30 minutes , films seen with Dr Bowles ;talked to Dr Chaparro Pt will need upper endosopy Objective Vital Signs - 12hr 08/19/17 08/19/17 08/19/17 07:52 08:02 09:03 Temperature 98.4 F Pulse Rate 78 Respiratory 20 Rate Blood Pressure 215/113 210/100 Blood Pressure 180/100 [Right] O2 Sat by Pulse 92 Oximetry - Labs 08/19/17 04:59 08/19/17 04:59 Diabetes panel 08/19/17 Range/Units 04:59 Sodium 136 L (137-145) mmol/L Potassium 4.1 D (3.6-5.0) mmol/L Chloride 98.9 (98-107) mmol/L Carbon Dioxide 23 (22-30) mmol/L BUN 25 H (7-17) mg/dL Creatinine 2.0 H (0.7-1.2) mg/dL Glucose 161 H (65-100) mg/dL Calcium 8.4 (8.4-10.2) mg/dL Calcium panel 08/19/17 Range/Units 04:59 Calcium 8.4 (8.4-10.2) mg/dL Pituitary panel 08/19/17 Range/Units 04:59 Sodium 136 L (137-145) mmol/L Potassium 4.1 D (3.6-5.0) mmol/L Chloride 98.9 (98-107) mmol/L Carbon Dioxide 23 (22-30) mmol/L BUN 25 H (7-17) mg/dL Creatinine 2.0 H (0.7-1.2) mg/dL Glucose 161 H (65-100) mg/dL Calcium 8.4 (8.4-10.2) mg/dL Adrenal panel 08/19/17 Range/Units 04:59 Sodium 136 L (137-145) mmol/L Potassium 4.1 D (3.6-5.0) mmol/L Chloride 98.9 (98-107) mmol/L Carbon Dioxide 23 (22-30) mmol/L BUN 25 H (7-17) mg/dL Creatinine 2.0 H (0.7-1.2) mg/dL Glucose 161 H (65-100) mg/dL Calcium 8.4 (8.4-10.2) mg/dL
[2017-08-19] MEDS: LASIX IV SCH ×2 (16:19→17:45)
[2017-08-19] MEDS: ASPIRIN PR SCH (16:20)
[2017-08-19] MEDS: NITRO-BID 2% TP SCH ×2 (16:44→17:15)
--- NOTE | 2017-08-19 16:59 | Gastroenterology Consultation ---
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 Symptoms started ~3 days ago at night while sleeping. Patient was in her upper abdomen with radiation to her right side. She had multiple associated n/v episodes w/o blood. CT of abd/pelvis reviewed showing non-specific bowel abnormalities (dilatation, possibly related to ibd, ischemia or sbo) Surgery following, no surgical indication at this time. She had SBFT w /o signs of small bowel obstruction. + bm's (multiple episodes today). Denies nsaid use. Past History Past Medical History: diabetes, hypertension, PVD, other (Lupus) Past Surgical History: cholecystectomy, hysterectomy, bowel surgery, Other ( nephrectomy) Social history: denies: smoking, alcohol abuse, prescription drug abuse, IV drug use, full code Family history: no significant family history Medications and Allergies Allergies Allergy/AdvReac Type Severity Reaction Status Date / Time VICTORINO Inhibitors Allergy Unknown Verified 08/17/17 06:00 Sulfa (Sulfonamide AdvReac Severe TONGUE Verified 08/17/17 06:00 Antibiotics) SWELLS Home Medications Medication Instructions Recorded Confirmed Last Taken Type Clonidine HCl [Catapres] 0.3 mg PO BID 09/08/13 08/18/17 01/20/15 History Cyclobenzaprine HCl [FLEXERIL] 10 mg PO BID 09/08/13 08/18/17 01/19/15 History Esomeprazole Magnesium [NexIUM] 40 mg PO QDAY 09/08/13 08/18/17 01/19/15 History Hydroxychloroquine [Plaquenil] 200 mg PO DAILY 09/08/13 08/18/17 01/19/15 History Methadone [Dolophine] 10 mg PO DAILY 09/08/13 08/18/17 01/19/15 History Zolpidem [Ambien] 10 mg PO HS PRN 09/08/13 08/18/17 01/19/15 History amLODIPine [Norvasc] 10 mg PO DAILY 09/08/13 08/18/17 01/19/15 History predniSONE [Deltasone] 10 mg PO DAILY 09/08/13 08/18/17 01/19/15 History HYDROcodone/APAP 5-325 [[place] 1 each PO Q6HR PRN #20 tablet 05/10/14 08/18/17 Unknown Rx 5/325] Promethazine [Phenergan] 25 mg PO Q6H PRN #20 tablet 05/10/14 08/18/17 Unknown Rx Aspirin EC [Aspirin Enteric Coated 81 mg PO DAILY 01/20/15 08/18/17 01/19/15 History TAB] Carvedilol 25 mg PO BID 01/20/15 08/18/17 01/19/15 History Insulin Regular, Human [HumuLIN R] 2 units SQ BID 01/20/15 08/18/17 01/19/15 History Hydralazine HCl [Apresoline TAB] 50 mg PO Q8HR 09/14/16 08/18/17 Unknown History Pravastatin Sodium [Pravastatin] 10 mg PO QHS 09/14/16 08/18/17 Unknown History Promethazine [Phenergan TAB] 25 mg PO Q6HR PRN 09/14/16 08/18/17 Unknown History oxyCODONE /ACETAMINOPHEN [Percocet 1 tab PO Q6HR PRN 09/14/16 08/18/17 Unknown History 5/325 mg] Active Meds: Active Medications Aspirin (Aspirin) 300 mg TN QDAY [facility] Last Admin: 08/19/17 16:20 Dose: Not Given Clonidine HCl (Catapres-Tts Patch) 0.3 mg TD C[place] [facility] Last Admin: 08/17/17 14:11 Dose: 0.3 mg Dextrose (D50w (25gm) Vial) 25 gm IV PRN PRN PRN Reason: HYPOGLYCEMIA Furosemide (Lasix) 40 mg IV 0600,1800 [facility] Last Admin: 08/19/17 16:19 Dose: 40 mg Hydralazine HCl (Apresoline) 20 mg IV Q4H PRN PRN Reason: Hypertension Last Admin: 08/19/17 08:02 Dose: 20 mg Hydromorphone HCl (Dilaudid) 1 mg IV Q4H PRN PRN Reason: Pain , Severe (7-10) Last Admin: 08/19/17 13:58 Dose: 1 mg Insulin Aspart (Novolog) 0 units SUB-Q ACHS SKYLER PRN Reason: Protocol Last Admin: 08/19/17 12:09 Dose: Not Given Methylprednisolone Sodium Succinate (Solu-Medrol) 20 mg IV Q12HR [facility] Last Admin: 08/19/17 09:05 Dose: 20 mg Metoprolol Tartrate (Lopressor) 2.5 mg IV Q8HR [facility] Nitroglycerin (Nitro-Bid 2%) 1 inch TP QIDNTG SKYLER PRN Reason: Protocol Last Admin: 08/19/17 16:44 Dose: Not Given Ondansetron HCl (Zofran) 4 mg IV Q8H PRN PRN Reason: N/V unrelieved by Reglan Last Admin: 08/19/17 16:19 Dose: 4 mg Review of Systems - Review of Systems All systems: negative (per HPI) Constitutional: weakness, poor appetite Gastrointestinal: abdominal pain, nausea, vomiting, diarrhea Exam - Constitutional Vital Signs: Temp Pulse Resp BP Pulse Ox 98.6 F 77 22 202/102 90 08/19/17 16:50 08/19/17 16:50 08/19/17 16:50 08/19/17 16:50 08/19/17 16:50 General appearance: no acute distress, other (chronically ill appearing) - EENT Eyes: PERRL, EOM intact ENT: hearing intact, other (+ NG tube, dry mucous membranes) - Respiratory Respiratory effort: normal Respiratory: bilateral: CTA - Cardiovascular Rhythm: regular Heart Sounds: Present: S1 & S2 - Gastrointestinal General gastrointestinal: Present: soft, tender (+ epigastric ttp), non- distended, normal bowel sounds - Neurologic Neurological: alert and oriented x3 - Psychiatric Psychiatric: appropriate mood/affect - Labs CBC & Chem 7: 08/19/17 04:59 08/19/17 04:59 Lab Results: Laboratory Results - last 24 hr 08/18/17 08/18/17 08/19/17 16:52 21:18 04:59 WBC 5.2 RBC 4.07 Hgb 8.9 L Hct 28.6 L MCV 70 L MCH 22 L MCHC 31 RDW 20.0 H Plt Count 255 Lymph % (Auto) 6.6 L [place] % (Auto) 4.6 Eos % (Auto) 0.1 Baso % (Auto) 0.3 Lymph # 0.3 L [place] # 0.2 Eos # 0.0 Baso # 0.0 Seg Neutrophils % 88.4 H Seg Neutrophils # 4.6 Sodium Potassium Chloride Carbon Dioxide Anion Gap BUN Creatinine Estimated GFR BUN/Creatinine Ratio Glucose POC Glucose 160 H 120 H Calcium NT-Pro-B Natriuret Pep 08/19/17 08/19/17 08/19/17 04:59 04:59 05:29 WBC RBC Hgb Hct MCV MCH MCHC RDW Plt Count Lymph % (Auto) [place] % (Auto) Eos % (Auto) Baso % (Auto) Lymph # [place] # Eos # Baso # Seg Neutrophils % Seg Neutrophils # Sodium 136 L Potassium 4.1 D Chloride 98.9 Carbon Dioxide 23 Anion Gap 18 BUN 25 H Creatinine 2.0 H Estimated GFR 31 BUN/Creatinine Ratio 13 Glucose 161 H POC Glucose 150 H Calcium 8.4 NT-Pro-B Natriuret Pep 66689 H 08/19/17 11:40 WBC RBC Hgb Hct MCV MCH MCHC RDW Plt Count Lymph % (Auto) [place] % (Auto) Eos % (Auto) Baso % (Auto) Lymph # [place] # Eos # Baso # Seg Neutrophils % Seg Neutrophils # Sodium Potassium Chloride Carbon Dioxide Anion Gap BUN Creatinine Estimated GFR BUN/Creatinine Ratio Glucose POC Glucose 142 H Calcium NT-Pro-B Natriuret Pep - Imaging X-ray: report reviewed CT Scan: report reviewed Assessment and Plan 1. Abdominal pain - unclear etiology. Imaging reviewed which showed non- specific bowel abnormalities. SBFT neg for obstructive process. Surgery following, and no surgical intervention indicated at present time. F/u KUB, and EGD if no contraindications. 2. Microcytic anemia - check iron studies; chronic anemia, also likely contributed by ckd. she reports h/o subtotal colectomy. Consider colonoscopy if not up to date and when pt able to tolerate prep
[2017-08-19] MEDS: LOPRESSOR IV SCH ×2 (17:19→21:46)
[2017-08-19] MEDS ORDERED: DILAUDID IV ONE (20:14)
[2017-08-19 21:11] LABS: Creatine Kinase MB 2.8 ng/mL (0.0-4.0)
[2017-08-20] MEDS: ZOFRAN IV PRN ×5 (00:15→23:00)
[2017-08-20] MEDS: DILAUDID IV PRN ×6 (00:15→23:00)
[2017-08-20] MEDS: APRESOLINE IV PRN ×3 (00:15→11:32)
[2017-08-20] MEDS: NOVOLOG SUB-Q SCH ×5 (00:20→23:00)
[2017-08-20] MEDS: LASIX IV SCH (05:26)
[2017-08-20] MEDS: NITRO-BID 2% TP SCH ×5 (05:43→17:49)
[2017-08-20] MEDS: LOPRESSOR IV SCH ×3 (05:43→22:50)
[2017-08-20 06:16] LABS: Basophils % (Auto) 0.4 % (0.0-1.8); Hematocrit 29.4 % (30.3-42.9); Hemoglobin 9.3 gm/dl (10.1-14.3); Mean Corpuscular HGB Conc 32 % (30-34); Platelet Count 267 K/mm3 (140-440); Red Blood Count 4.23 M/mm3 (3.65-5.03); White Blood Count 6.8 K/mm3 (4.5-11.0)
[2017-08-20 06:17] LABS: Mean Corpuscular Hemoglobin 22 pg (28-32); Mean Corpuscular Volume 70 fl (79-97); Red Cell Distribution Width 20.2 % (13.2-15.2)
[2017-08-20 06:30] LABS: Calcium 8.5 mg/dL (8.4-10.2); Chloride 100.2 mmol/L (98-107); Potassium 3.9 mmol/L (3.6-5.0)
--- NOTE | 2017-08-20 09:09 | Progress Note ---
Assessment and Plan Assessment and plan: 57-year-old -[place] female with past medical history significant for hypertension, diabetes, lupus presented with abdominal pain Chronic systolic CHF - case dw cardiology, needs ischemic workup prior to EGD to C-scope Partial small bowel obstruction -now resolved Chest pain abdominal pain may be chest pain variant stress test to Acute on chronic kidney injury -Nephrology consult appreciated Uncontrolled Hypertension - Continue with IV hydralazine, clonidine patch Diabetes mellitus (hyperglycemia) - SSI - accu check History of lupus - wean off steroids History Interval history: She continues to have abdominal pain, worse after she eats. It is epigastric, dull, 6 out of 10. Exacerbating or relieving factors Review of systems Constitutional: No fevers, no malaise, no joint pains CVS: No chest pain, no orthopnea, no dyspnea on exertion, no pedal edema GI: , no diarrhea, no vomiting, no constipation Respiratory: No shortness of breath, no wheezing, no coughing Hospitalist Physical - Physical exam Narrative exam: General.: Appears well, no distress, nontoxic HEENT: Moist mucous membranes, extraocular muscles intact, no lymphadenopathy Neck: supple Cardiac: S1-S2 heard Lungs: clear to auscultation bilaterally Abdomen: soft , nontender, nondistended, bowel sounds positive Extremities: no edema clubbing or cyanosis Skin: no rash or lesions Neurologic: no gross focal deficits Psych: appropriate behavior, appropriate mood, corporative, judgment intact - Constitutional Vitals: Temp Pulse Resp BP Pulse Ox 98.3 F 69 17 145/71 97 08/20/17 08:33 08/20/17 08:33 08/20/17 08:33 08/20/17 08:33 08/20/17 08:33 General appearance: Present: no acute distress Results - Labs CBC & Chem 7: 08/23/17 16:05 08/24/17 05:21 Labs: Laboratory Last Values WBC 6.8 K/mm3 (4.5-11.0) 08/20/17 05:05 RBC 4.23 M/mm3 (3.65-5.03) 08/20/17 05:05 Hgb 9.3 gm/dl (10.1-14.3) L 08/20/17 05:05 Hct 29.4 % (30.3-42.9) L 08/20/17 05:05 MCV 70 fl (79-97) L 08/20/17 05:05 MCH 22 pg (28-32) L 08/20/17 05:05 MCHC 32 % (30-34) 08/20/17 05:05 RDW 20.2 % (13.2-15.2) H 08/20/17 05:05 Plt Count 267 K/mm3 (140-440) 08/20/17 05:05 Lymph % (Auto) 6.1 % (13.4-35.0) L 08/20/17 05:05 [place] % (Auto) 4.3 % (0.0-7.3) 08/20/17 05:05 Eos % (Auto) 0.0 % (0.0-4.3) 08/20/17 05:05 Baso % (Auto) 0.4 % (0.0-1.8) 08/20/17 05:05 Lymph # 0.4 K/mm3 (1.2-5.4) L 08/20/17 05:05 [place] # 0.3 K/mm3 (0.0-0.8) 08/20/17 05:05 Eos # 0.0 K/mm3 (0.0-0.4) 08/20/17 05:05 Baso # 0.0 K/mm3 (0.0-0.1) 08/20/17 05:05 Seg Neutrophils % 89.2 % (40.0-70.0) H 08/20/17 05:05 Seg Neutrophils # 6.1 K/mm3 (1.8-7.7) 08/20/17 05:05 Sodium 141 mmol/L (137-145) 08/20/17 05:05 Potassium 3.9 mmol/L (3.6-5.0) 08/20/17 05:05 Chloride 100.2 mmol/L (98-107) 08/20/17 05:05 Carbon Dioxide 26 mmol/L (22-30) 08/20/17 05:05 Anion Gap 19 mmol/L 08/20/17 05:05 BUN 26 mg/dL (7-17) H 08/20/17 05:05 Creatinine 2.4 mg/dL (0.7-1.2) H 08/20/17 05:05 Estimated GFR 25 ml/min 08/20/17 05:05 BUN/Creatinine Ratio 11 % 08/20/17 05:05 Glucose 180 mg/dL (65-100) H 08/20/17 05:05 POC Glucose 208 (70-105) H 08/19/17 21:53 Lactic Acid 0.50 mmol/L (0.7-2.0) L 08/17/17 07:15 Calcium 8.5 mg/dL (8.4-10.2) 08/20/17 05:05 Iron 30 ug/dL (37-170) L 08/18/17 09:54 TIBC 248 mcg/dL (250-450) L 08/18/17 09:54 Total Bilirubin 0.30 mg/dL (0.1-1.2) 08/17/17 07:10 AST 13 units/L (5-40) 08/17/17 07:10 ALT 6 units/L (7-56) L 08/17/17 07:10 Alkaline Phosphatase 105 units/L (35-129) 08/17/17 07:10 Total Creatine Kinase 163 units/L (30-135) H 08/19/17 20:10 CK-MB (CK-2) 2.8 ng/mL (0.0-4.0) 08/19/17 20:10 CK-MB (CK-2) Rel Index 1.7 (0-4) 08/19/17 20:10 Troponin T 0.065 ng/mL (0.00-0.029) H 08/19/17 20:10 NT-Pro-B Natriuret Pep 00114 pg/mL (0-900) H 08/19/17 04:59 Total Protein 7.2 g/dL (6.3-8.2) 08/17/17 07:10 Albumin 3.0 g/dL (3.9-5) L 08/17/17 07:10 Albumin/Globulin Ratio 0.7 % 08/17/17 07:10 Triglycerides 149 mg/dL (2-149) 08/19/17 20:10 Cholesterol 213 mg/dL (50-199) H 08/19/17 20:10 LDL Cholesterol Direct 130 mg/dL (50-130) 08/19/17 20:10 HDL Cholesterol 54 mg/dL (40-59) 08/19/17 20:10 Cholesterol/HDL Ratio 3.94 % 08/19/17 20:10 Lipase 43 units/L (13-60) 08/17/17 07:10 Urine Color Yellow (Yellow) 08/17/17 09:06 Urine Turbidity Clear (Clear) 08/17/17 09:06 Urine pH 7.0 (5.0-7.0) 08/17/17 09:06 Ur Specific [place] 1.013 (1.003-1.030) 08/17/17 09:06 Urine Protein 100 mg/dl mg/dL (Negative) 08/17/17 09:06 Urine Glucose (UA) Neg mg/dL (Negative) 08/17/17 09:06 Urine Ketones Neg mg/dL (Negative) 08/17/17 09:06 Urine Blood Neg (Negative) 08/17/17 09:06 Urine Nitrite Neg (Negative) 08/17/17 09:06 Urine Bilirubin Neg (Negative) 08/17/17 09:06 Urine Urobilinogen < 2.0 mg/dL (<2.0) 08/17/17 09:06 Ur Leukocyte Esterase Neg (Negative) 08/17/17 09:06 Urine WBC (Auto) < 1.0 /HPF (0.0-6.0) 08/17/17 09:06 Urine RBC (Auto) 1.0 /HPF (0.0-6.0) 08/17/17 09:06 U Epithel Cells (Auto) 2.0 /HPF (0-13.0) 08/17/17 09:06 Urine Eosinophils None seen (None Seen) 08/18/17 14:58 Urine Creatinine 53.2 mg/dL (0.1-20.0) H 08/18/17 14:58 Urine Sodium 118 mmol/L 08/18/17 14:58 Urine Urea Nitrogen 303 08/18/17 14:58 Complement C3 120 mg/dL (90-180) 08/18/17 10:46 Complement C4 30 mg/dL (16-47) 08/18/17 10:46
[2017-08-20] MEDS ORDERED: LEXISCAN IV ONE ×2 (09:34→09:40)
[2017-08-20] MEDS: ASPIRIN PR SCH (10:41)
--- NOTE | 2017-08-20 10:47 | Progress Note ---
Assessment and Plan Acute Kidney injury possible pre renal vs cardiorenal. Chronic Kidney disease stage 3: -BL Cr around 1.6 to 1.7 -Possibly may have CKD from from HTN/DM or from lupus. -Has had protein on Urine -CXR was congested, TTE shows LVEF 40-45%. IVFs were stopped and lasix diuresis started yesterday. -Cr slightly up. Will check CXR today for volume status and adjust lasix dose based on result. -Renally dose all meds and avoid nephrotoxic meds -Ordered Complement levels, Anti DsDNA. UA showed some protein but no red cells. -Pt may need ARB to protect kidney from DM but this can be done outpatient once renal function stable. Partial Small bowel obstruction: -On CT -Per primary and GS Acute on chronic systolic congestive heart failure: -TTE shows LVEF 40-45%, CXR congested. -Continue lasix. -Cards consulted. Stress test today. Essential hypertension: -Titrate BP meds to keep SBP <130/80 -Avoid ARBs, Yevgeniy inh for now Anemia of chronic disease: -Start Epogen to keep Hg 10-12 -Transfuse PRN per primary Hyperkalemia: -Improved. Diabetes mellitus type 2 on insulin: -On ISS -Per primary Hyperlipidemia, chronic: -Statin -Target LDL <80 Nimesh Dotson MD Nephrology, Hypertension, Dialysis, Transplantation Phone no: [phone] Subjective Date of service: 08/20/17 Interval history: stress test today. Making urine. Objective - Exam Narrative Exam: GE: AAOX3 HEENT: PERRLA Neck: Supple Chest: BL Crackles CVS: RRR Abd: BS+ Ext: No cce Psyche: Appropriate mood - Vital Signs Vital signs: Vital Signs - 12hr 08/20/17 08/20/17 08/20/17 00:11 00:15 04:56 Temperature 98.6 F 98.6 F Pulse Rate 69 68 Respiratory 18 18 Rate Blood Pressure 194/92 194/92 190/94 Blood Pressure [Right] O2 Sat by Pulse 98 98 Oximetry 08/20/17 08/20/17 08/20/17 05:26 05:43 08:33 Temperature 98.3 F Pulse Rate 68 69 Respiratory 17 Rate Blood Pressure 190/94 Blood Pressure 145/71 [Right] O2 Sat by Pulse 97 Oximetry 08/20/17 08/20/17 08/20/17 09:35 09:43 09:44 Temperature Pulse Rate 63 89 106 H Respiratory Rate Blood Pressure 182/95 182/95 169/94 Blood Pressure [Right] O2 Sat by Pulse Oximetry 08/20/17 08/20/17 08/20/17 09:45 09:46 09:47 Temperature Pulse Rate 103 H 98 H 97 H Respiratory Rate Blood Pressure 167/84 158/83 159/86 Blood Pressure [Right] O2 Sat by Pulse Oximetry - Lab 08/20/17 05:05 08/20/17 05:05 Most recent lab results Calcium 8.5 mg/dL (8.4-10.2) 08/20/17 05:05 Urine Creatinine 53.2 mg/dL (0.1-20.0) H 08/18/17 14:58 Urine Sodium 118 mmol/L 08/18/17 14:58
--- NOTE | 2017-08-20 11:24 | Gastroenterology Progress Note ---
<JUVEEVETTE Su - Last Filed: 08/20/17 11:29> Assessment and Plan 1. Abdominal pain - unclear etiology. Imaging reviewed which showed non- specific bowel abnormalities. SBFT neg for obstructive process. Surgery following, and no surgical intervention indicated at present time. Will schedule for EGD in am pending stress test results from today. 2. Microcytic anemia - check iron studies; chronic anemia, also likely contributed by ckd. she reports h/o subtotal colectomy. Consider colonoscopy if not up to date and when pt able to tolerate prep Subjective Date of service: 08/20/17 Principal diagnosis: abdominal pain Interval history: Patient resting in bed no acute distress. C/o continued nausea w/o any vomiting today or abd pain at this time. Objective - Constitutional Vitals: Temp Pulse Resp BP Pulse Ox 98.3 F 97 H 17 159/86 97 08/20/17 08:33 08/20/17 09:47 08/20/17 08:33 08/20/17 09:47 08/20/17 08:33 General appearance: no acute distress - Respiratory Respiratory: bilateral: CTA - Cardiovascular Rhythm: regular Heart Sounds: Present: S1 & S2 - Gastrointestinal General gastrointestinal: Present: soft, non-tender, non-distended, normal bowel sounds - Integumentary Integumentary: Present: warm, dry - Labs CBC & Chem 7: 08/20/17 05:05 08/20/17 05:05 Labs: Laboratory Results - last 24 hr 08/18/17 08/18/17 08/19/17 10:46 10:46 11:40 WBC RBC Hgb Hct MCV MCH MCHC RDW Plt Count Lymph % (Auto) Bland % (Auto) Eos % (Auto) Baso % (Auto) Lymph # Bland # Eos # Baso # Seg Neutrophils % Seg Neutrophils # Sodium Potassium Chloride Carbon Dioxide Anion Gap BUN Creatinine Estimated GFR BUN/Creatinine Ratio Glucose POC Glucose 142 H Calcium Total Creatine Kinase CK-MB (CK-2) CK-MB (CK-2) Rel Index Troponin T Triglycerides Cholesterol LDL Cholesterol Direct HDL Cholesterol Cholesterol/HDL Ratio Complement C3 120 Complement C4 30 08/19/17 08/19/17 08/20/17 20:10 21:53 05:05 WBC 6.8 RBC 4.23 Hgb 9.3 L Hct 29.4 L MCV 70 L MCH 22 L MCHC 32 RDW 20.2 H Plt Count 267 Lymph % (Auto) 6.1 L Bland % (Auto) 4.3 Eos % (Auto) 0.0 Baso % (Auto) 0.4 Lymph # 0.4 L Bland # 0.3 Eos # 0.0 Baso # 0.0 Seg Neutrophils % 89.2 H Seg Neutrophils # 6.1 Sodium Potassium Chloride Carbon Dioxide Anion Gap BUN Creatinine Estimated GFR BUN/Creatinine Ratio Glucose POC Glucose 208 H Calcium Total Creatine Kinase 163 H CK-MB (CK-2) 2.8 CK-MB (CK-2) Rel Index 1.7 Troponin T 0.065 H Triglycerides 149 Cholesterol 213 H LDL Cholesterol Direct 130 HDL Cholesterol 54 Cholesterol/HDL Ratio 3.94 Complement C3 Complement C4 08/20/17 05:05 WBC RBC Hgb Hct MCV MCH MCHC RDW Plt Count Lymph % (Auto) Bland % (Auto) Eos % (Auto) Baso % (Auto) Lymph # Bland # Eos # Baso # Seg Neutrophils % Seg Neutrophils # Sodium 141 Potassium 3.9 Chloride 100.2 Carbon Dioxide 26 Anion Gap 19 BUN 26 H Creatinine 2.4 H Estimated GFR 25 BUN/Creatinine Ratio 11 Glucose 180 H POC Glucose Calcium 8.5 Total Creatine Kinase CK-MB (CK-2) CK-MB (CK-2) Rel Index Troponin T Triglycerides Cholesterol LDL Cholesterol Direct HDL Cholesterol Cholesterol/HDL Ratio Complement C3 Complement C4 <GEREMIAS CASH - Last Filed: 08/21/17 10:42> Assessment and Plan Patient seen and examined on 08/20. Agree with note by Evette Kessler. Stress test pending. If neg, plan for EGD. Objective - Constitutional Vitals: Temp Pulse Resp BP Pulse Ox 98.0 F 76 20 193/108 99 08/21/17 06:02 08/21/17 08:57 08/21/17 06:02 08/21/17 08:57 08/21/17 06:02 - Labs CBC & Chem 7: 08/20/17 05:05 08/20/17 05:05 Labs: Laboratory Results - last 24 hr 08/20/17 08/20/17 08/20/17 08:11 11:22 15:51 POC Glucose 178 H 95 169 H 08/20/17 08/21/17 21:29 07:09 POC Glucose 172 H 156 H
--- NOTE | 2017-08-20 12:25 | Progress Note ---
Assessment and Plan Chest Pain High risk MPI showing a large mixed inferior and inferolateral wall defect and small reversible anterior wall defect with RWMA and LVEF 53% Systemic Hypertension Type II DM Chronic renal failure Peripheral vascular disease s/p [employer] Small bowel obstruction (history of subtotal colectomy) Microcytic anemia Recommendations: Continue medical therapy Discontinue IV lasix Patient is high risk for any procedure or surgery given symptoms of unstable angina. Do not proceed unless it is a life saving intervention Renal consultation is warranted Coronary angiography when renal function stabilizes Subjective Date of service: 08/20/17 Principal diagnosis: abdominal pain Interval history: Patient did experience chest pain overnight This morning she is asymptomatic Objective Vital Signs Temp Pulse Resp BP BP Pulse Ox 08/20/17 11:32 73 190/96 08/20/17 09:47 97 H 159/86 08/20/17 09:46 98 H 158/83 08/20/17 09:45 103 H 167/84 08/20/17 09:44 106 H 169/94 08/20/17 09:43 89 182/95 08/20/17 09:35 63 182/95 08/20/17 08:33 98.3 F 69 17 145/71 97 08/20/17 05:43 68 08/20/17 05:26 190/94 08/20/17 04:56 98.6 F 68 18 190/94 98 08/20/17 00:15 194/92 08/20/17 00:11 98.6 F 69 18 194/92 98 08/19/17 21:46 87 194/96 08/19/17 19:57 98.1 F 91 H 20 194/96 97 08/19/17 19:17 71 206/100 08/19/17 16:50 98.6 F 77 22 202/102 90 08/19/17 16:15 98.6 F 82 22 202/102 93 - Physical Examination HEENT: Positive: PERRL Neck: Positive: neck supple Cardiac: Positive: Reg Rate and Rhythm Lungs: Positive: Normal Exam Neuro: Positive: Grossly Intact Abdomen: Positive: Decreased Bowel Sounds Skin: Positive: Clear Extremities: Absent: edema - Labs and Meds Cardiac Enzymes 08/19/17 Range/Units 20:10 CK-MB (CK-2) 2.8 (0.0-4.0) ng/mL Lipids 08/19/17 Range/Units 20:10 Triglycerides 149 (2-149) mg/dL Cholesterol 213 H (50-199) mg/dL HDL Cholesterol 54 (40-59) mg/dL Cholesterol/HDL Ratio 3.94 % CBC 08/20/17 Range/Units 05:05 WBC 6.8 (4.5-11.0) K/mm3 RBC 4.23 (3.65-5.03) M/mm3 Hgb 9.3 L (10.1-14.3) gm/dl Hct 29.4 L (30.3-42.9) % Plt Count 267 (140-440) K/mm3 Lymph # 0.4 L (1.2-5.4) K/mm3 Lane # 0.3 (0.0-0.8) K/mm3 Eos # 0.0 (0.0-0.4) K/mm3 Baso # 0.0 (0.0-0.1) K/mm3 Comprehensive Metabolic Panel 08/20/17 Range/Units 05:05 Sodium 141 (137-145) mmol/L Potassium 3.9 (3.6-5.0) mmol/L Chloride 100.2 (98-107) mmol/L Carbon Dioxide 26 (22-30) mmol/L BUN 26 H (7-17) mg/dL Creatinine 2.4 H (0.7-1.2) mg/dL Glucose 180 H (65-100) mg/dL Calcium 8.5 (8.4-10.2) mg/dL
--- NOTE | 2017-08-20 13:40 | XRay Report ---
AP CHEST :08/20/17 CLINICAL: Difficulty breathing. COMPARISON:08/19/17 FINDINGS: Stable cardiomegaly. Redistribution of pulmonary blood flow to the upper lobes. The pulmonary vessels are more distinct than on the prior exam. Decreased bilateral perihilar reticular interstitial opacities. No pulmonary consolidation. No pleural effusion. IMPRESSION: CHF with improvement and minimal residual pulmonary edema.
--- NOTE | 2017-08-21 02:37 | Treadmill Report ---
INDICATION: Chest pain. FINDINGS: There is evidence of a large inferior and inferolateral wall defect comprising 27% of left ventricular myocardium that is partially reversible and consistent with infarction/ischemia in the left circumflex and/or right coronary artery distribution. There is also evidence of a mild decrease in uptake noted in the anterior wall and the mid anterior wall, suspect for LAD ischemia. Gated wall imaging reveals an ejection fraction of 53% with severe hypokinesis of the inferolateral wall. IMPRESSION: 1. This is a high risk myocardial perfusion scan associated with a one year mortality of greater than 3%. 2. Large mixed partially reversible inferior and inferolateral wall defect suggesting infarction and ischemia in the left circumflex and/or right coronary artery distribution. 3. Mild decrease in counts noted in the anterior wall suggesting possible LAD ischemia. 4. Clinical correlation is recommended. JOB# [id number] VIMAL/FRAN
[2017-08-21] MEDS: NITRO-BID 2% TP SCH ×2 (05:05→05:08)
[2017-08-21] MEDS: LOPRESSOR IV SCH ×3 (05:06→22:33)
[2017-08-21] MEDS: ZOFRAN IV PRN (05:20)
[2017-08-21] MEDS: DILAUDID IV PRN ×3 (05:20→18:30)
[2017-08-21] MEDS: APRESOLINE IV PRN (08:57)
--- NOTE | 2017-08-21 10:30 | Progress Note ---
Assessment and Plan Acute Kidney injury possible pre renal vs cardiorenal. Chronic Kidney disease stage 3: -BL Cr around 1.6 to 1.7 -Possibly may have CKD from from HTN/DM or from lupus. -Has had protein on Urine -CXR was congested, TTE shows LVEF 40-45%. -Restart lasix 40 mg IV daily. -Renally dose all meds and avoid nephrotoxic meds -Ordered Complement levels, Anti DsDNA. UA showed some protein but no red cells. Complement levels WNLs. -Pt may need ARB to protect kidney from DM but this can be done outpatient once renal function stable. Partial Small bowel obstruction: -On CT -Per primary and GS Acute on chronic systolic congestive heart failure: -TTE shows LVEF 40-45%, CXR congested. -Restart lasix at 40 mg IV daily. -Cards consulted. Essential hypertension: -Titrate BP meds to keep SBP <130/80 -Avoid ARBs, Yevgeniy inh for now Anemia of chronic disease: -Start Epogen to keep Hg 10-12 -Transfuse PRN per primary Hyperkalemia: -Improved. Diabetes mellitus type 2 on insulin: -On ISS -Per primary Hyperlipidemia, chronic: -Statin -Target LDL <80 Nimesh Dotson MD Nephrology, Hypertension, Dialysis, Transplantation Phone no: [phone] Subjective Date of service: 08/21/17 Principal diagnosis: abdominal pain Interval history: Making urine. NPO. Denies CP/SHOB. Objective - Exam Narrative Exam: GE: AAOX3 HEENT: PERRLA Neck: Supple Chest: Coarse BS BL CVS: RRR Abd: BS+ Ext: No cce Psyche: Appropriate mood - Vital Signs Vital signs: Vital Signs - 12hr 08/21/17 08/21/17 08/21/17 00:00 04:00 06:02 Temperature 98.5 F 98.0 F Pulse Rate 70 80 72 Respiratory 20 20 Rate Blood Pressure Blood Pressure 172/87 192/95 [Right] O2 Sat by Pulse 97 99 Oximetry 08/21/17 08:57 Temperature Pulse Rate 76 Respiratory Rate Blood Pressure 193/108 Blood Pressure [Right] O2 Sat by Pulse Oximetry - Lab 08/20/17 05:05 08/20/17 05:05 Most recent lab results Calcium 8.5 mg/dL (8.4-10.2) 08/20/17 05:05 Urine Creatinine 53.2 mg/dL (0.1-20.0) H 08/18/17 14:58 Urine Sodium 118 mmol/L 08/18/17 14:58
[2017-08-21] MEDS: NOVOLOG SUB-Q SCH ×4 (10:45→21:50)
[2017-08-21] MEDS: ASPIRIN PR SCH (10:45)
--- NOTE | 2017-08-21 11:10 | XRay Report ---
AP CHEST: HISTORY: Congestion Mild cardiomegaly and pulmonary venous congestion are stable since 08/20/17. No evidence for pneumonia, CHF or pneumothorax. The bony structures are intact. IMPRESSION: Mild cardiomegaly and pulmonary venous congestion.
[2017-08-21 13:14] LABS: Potassium 3.4 mmol/L (3.6-5.0)
--- NOTE | 2017-08-21 14:40 | Progress Note ---
Assessment and Plan - Patient Problems (1) Pulmonary edema Current Visit: Yes Status: Acute Plan to address problem: Heart failure with abnormal thallium stress test, invasive coronary angiography will depend on evaluation of renal status. Subjective Date of service: 08/21/17 Principal diagnosis: abdominal pain Interval history: Patient looks and feels better, abdominal symptoms have resolved, she is tolerating oral intake. No cardiac complaints, no further chest pain or shortness of breath. Objective Vital Signs Temp Pulse Resp Resp BP BP Pulse Ox 08/21/17 12:30 98.2 F 77 16 180/98 97 08/21/17 11:14 20 08/21/17 10:44 20 08/21/17 10:00 20 08/21/17 08:57 76 193/108 08/21/17 07:00 20 08/21/17 06:02 98.0 F 72 20 192/95 99 08/21/17 04:00 80 08/21/17 00:00 98.5 F 70 20 172/87 97 08/20/17 20:11 98.4 F 08/20/17 20:08 71 20 157/82 98 08/20/17 16:13 98.4 F 72 18 155/83 - Physical Examination HEENT: Positive: PERRL Neck: Positive: neck supple Cardiac: Positive: Reg Rate and Rhythm Lungs: Positive: Decreased Breath Sounds Neuro: Positive: Grossly Intact Abdomen: Positive: Soft Skin: Positive: Clear Extremities: Absent: edema - Labs and Meds Comprehensive Metabolic Panel 08/21/17 Range/Units 12:35 Sodium 138 (137-145) mmol/L Potassium 3.4 L (3.6-5.0) mmol/L Chloride 97.0 L (98-107) mmol/L Carbon Dioxide 25 (22-30) mmol/L BUN 25 H (7-17) mg/dL Creatinine 2.3 H (0.7-1.2) mg/dL Glucose 147 H (65-100) mg/dL Calcium 8.0 L (8.4-10.2) mg/dL
[2017-08-21] MEDS: LASIX IV SCH (15:49)
--- NOTE | 2017-08-21 16:39 | Gastroenterology Progress Note ---
Assessment and Plan Abdominal pain - may be cardiac given positive stress test. hold off on EGD while under-going cardiac work-up/treatment. Will sign off, please call back as needed or with questions. Subjective Date of service: 08/21/17 Principal diagnosis: abdominal pain Interval history: pt seen and examined. reports improvement in abd/chest pain. + stress test noted. denies n/v or gi bleeding. Objective - Constitutional Vitals: Temp Pulse Resp BP Pulse Ox 98.2 F 80 16 190/100 97 08/21/17 12:30 08/21/17 15:49 08/21/17 12:30 08/21/17 15:49 08/21/17 12:30 General appearance: no acute distress - Respiratory Respiratory effort: normal Respiratory: bilateral: CTA - Cardiovascular Rhythm: regular Heart Sounds: Present: S1 & S2 - Gastrointestinal General gastrointestinal: Present: soft, non-tender, non-distended - Neurologic Neurological: alert and oriented x3 - Psychiatric Psychiatric: appropriate mood/affect - Labs CBC & Chem 7: 08/20/17 05:05 08/21/17 12:35 Labs: Laboratory Results - last 24 hr 08/20/17 08/20/17 08/21/17 15:51 21:29 07:09 Sodium Potassium Chloride Carbon Dioxide Anion Gap BUN Creatinine Estimated GFR BUN/Creatinine Ratio Glucose POC Glucose 169 H 172 H 156 H Calcium 08/21/17 08/21/17 11:15 12:35 Sodium 138 Potassium 3.4 L Chloride 97.0 L Carbon Dioxide 25 Anion Gap 19 BUN 25 H Creatinine 2.3 H Estimated GFR 26 BUN/Creatinine Ratio 11 Glucose 147 H POC Glucose 107 H Calcium 8.0 L
--- NOTE | 2017-08-21 21:35 | Progress Note ---
Subjective Patient Reports: Positive: feels better, flatus, bowel movement Narrative: feels Ok today , no pain no nausea , hungry , abdomen soft endoscopy could not be done due to cardiac status , Abdomen soft and benign , no tenderness ;will advance diet , Home in AM as per internal Med . Objective Vital Signs - 12hr 08/21/17 08/21/17 08/21/17 10:00 10:44 11:14 Temperature Pulse Rate Respiratory 20 20 Rate Respiratory 20 Rate [Abdomen] Blood Pressure Blood Pressure [Right] O2 Sat by Pulse Oximetry 08/21/17 08/21/17 08/21/17 12:30 15:49 17:59 Temperature 98.2 F Pulse Rate 77 80 78 Respiratory 16 Rate Respiratory Rate [Abdomen] Blood Pressure 190/100 Blood Pressure 180/98 [Right] O2 Sat by Pulse 97 Oximetry - Labs 08/20/17 05:05 08/21/17 12:35 Diabetes panel 08/21/17 Range/Units 12:35 Sodium 138 (137-145) mmol/L Potassium 3.4 L (3.6-5.0) mmol/L Chloride 97.0 L (98-107) mmol/L Carbon Dioxide 25 (22-30) mmol/L BUN 25 H (7-17) mg/dL Creatinine 2.3 H (0.7-1.2) mg/dL Glucose 147 H (65-100) mg/dL Calcium 8.0 L (8.4-10.2) mg/dL Calcium panel 08/21/17 Range/Units 12:35 Calcium 8.0 L (8.4-10.2) mg/dL Pituitary panel 08/21/17 Range/Units 12:35 Sodium 138 (137-145) mmol/L Potassium 3.4 L (3.6-5.0) mmol/L Chloride 97.0 L (98-107) mmol/L Carbon Dioxide 25 (22-30) mmol/L BUN 25 H (7-17) mg/dL Creatinine 2.3 H (0.7-1.2) mg/dL Glucose 147 H (65-100) mg/dL Calcium 8.0 L (8.4-10.2) mg/dL Adrenal panel 08/21/17 Range/Units 12:35 Sodium 138 (137-145) mmol/L Potassium 3.4 L (3.6-5.0) mmol/L Chloride 97.0 L (98-107) mmol/L Carbon Dioxide 25 (22-30) mmol/L BUN 25 H (7-17) mg/dL Creatinine 2.3 H (0.7-1.2) mg/dL Glucose 147 H (65-100) mg/dL Calcium 8.0 L (8.4-10.2) mg/dL
[2017-08-22] MEDS: APRESOLINE IV PRN (00:37)
[2017-08-22] MEDS: DILAUDID IV PRN ×5 (00:37→21:52)
[2017-08-22] MEDS: ZOFRAN IV PRN ×4 (00:43→21:52)
[2017-08-22] MEDS: LOPRESSOR IV SCH (05:36)
[2017-08-22 06:55] LABS: Calcium 8.2 mg/dL (8.4-10.2); Chloride 98.2 mmol/L (98-107); Potassium 3.8 mmol/L (3.6-5.0)
[2017-08-22] MEDS: NOVOLOG SUB-Q SCH ×4 (07:30→22:36)
[2017-08-22] MEDS: LASIX IV SCH (09:23)
[2017-08-22] MEDS: ASPIRIN PR SCH (09:24)
--- NOTE | 2017-08-22 10:06 | Progress Note ---
Assessment and Plan Acute Kidney injury possible pre renal vs cardiorenal. Chronic Kidney disease stage 3: -BL Cr around 1.6 to 1.7 -Possibly may have CKD from from HTN/DM or from lupus. -Has had protein on Urine -CXR was congested, TTE shows LVEF 40-45%. -Stress test was abnormal so cardiac cath planned by Cards on Friday. Lasix stopped and started on gentle fluids to decrease risk of EDITH. Risks and benifits of Cardiac cath were discussed with patient risks including worsening of Kidney failure including need for temporary or premenant hemodialysis. Pt accepts risks involved. -Can continue IVFs 12 hours post cath. Keep close eye on volume status during this time as does have CHF. In the event that she goes into repiratory distress then at that time will have to hold IVFs and restart the diuretics. -Renally dose all meds and avoid nephrotoxic meds -Ordered Complement levels, Anti DsDNA. UA showed some protein but no red cells. Complement levels WNLs. -Pt may need ARB to protect kidney from DM but this can be done outpatient once renal function stable. Partial Small bowel obstruction: -On CT -Per primary and GS -Having BM and eating now. Acute on chronic systolic congestive heart failure: -TTE shows LVEF 40-45%, CXR congested. -Management as in JUANA section. Cards on board. Essential hypertension: -Titrate BP meds to keep SBP <130/80 -Avoid ARBs, Yevgeniy inh for now Anemia of chronic disease: -Start Epogen to keep Hg 10-12 -Transfuse PRN per primary Diabetes mellitus type 2 on insulin: -On ISS -Per primary Hyperlipidemia, chronic: -Statin -Target LDL <80 Nimesh Dotson MD Nephrology, Hypertension, Dialysis, Transplantation Phone no: [phone] Subjective Date of service: 08/22/17 Principal diagnosis: abdominal pain Interval history: Making urine. Eating now. Denies CP/SHOB. Objective - Exam Narrative Exam: GE: AAOX3 HEENT: PERRLA Neck: Supple Chest: Coarse BS BL CVS: RRR Abd: BS+ Ext: No cce Psyche: Appropriate mood - Vital Signs Vital signs: Vital Signs - 12hr 08/22/17 08/22/17 08/22/17 00:12 04:44 05:00 Temperature 97.6 F 98.3 F Pulse Rate 71 73 77 Respiratory 18 18 Rate Blood Pressure 191/98 169/84 O2 Sat by Pulse 99 97 Oximetry 08/22/17 09:23 Temperature Pulse Rate Respiratory 20 Rate Blood Pressure O2 Sat by Pulse Oximetry - Lab 08/20/17 05:05 08/22/17 05:18 Most recent lab results Calcium 8.2 mg/dL (8.4-10.2) L 08/22/17 05:18 Urine Creatinine 53.2 mg/dL (0.1-20.0) H 08/18/17 14:58 Urine Sodium 118 mmol/L 08/18/17 14:58
--- NOTE | 2017-08-22 10:37 | Progress Note ---
Assessment and Plan Chest Pain High risk MPI showing a large mixed inferior and inferolateral wall defect and small reversible anterior wall defect with RWMA and LVEF 53% Systemic Hypertension Type II DM Chronic renal failure Peripheral vascular disease s/p [employer] Small bowel obstruction (history of subtotal colectomy) Microcytic anemia Recommendation: IV hydration. Coronary angiography on Friday if renal function stabilizes. Subjective Date of service: 08/22/17 Principal diagnosis: abdominal pain Interval history: Patient reports intermittent chest pain and shortness of breath. Objective Vital Signs Temp Pulse Resp BP BP Pulse Ox 08/22/17 09:23 20 08/22/17 05:00 77 08/22/17 04:44 98.3 F 73 18 169/84 97 08/22/17 00:12 97.6 F 71 18 191/98 99 08/21/17 20:25 98.1 F 85 20 97/43 100 08/21/17 17:59 78 08/21/17 15:49 80 190/100 08/21/17 12:30 98.2 F 77 16 180/98 97 08/21/17 11:14 20 08/21/17 10:44 20 - Physical Examination General: No Apparent Distress HEENT: Positive: PERRL Cardiac: Positive: Reg Rate and Rhythm Lungs: Positive: Decreased Breath Sounds Neuro: Positive: Grossly Intact Extremities: Absent: edema - Labs and Meds Comprehensive Metabolic Panel 08/21/17 08/22/17 Range/Units 12:35 05:18 Sodium 138 139 (137-145) mmol/L Potassium 3.4 L 3.8 (3.6-5.0) mmol/L Chloride 97.0 L 98.2 (98-107) mmol/L Carbon Dioxide 25 27 (22-30) mmol/L BUN 25 H 33 H (7-17) mg/dL Creatinine 2.3 H 2.4 H (0.7-1.2) mg/dL Glucose 147 H 188 H (65-100) mg/dL Calcium 8.0 L 8.2 L (8.4-10.2) mg/dL
[2017-08-22] MEDS: PROCARDIA XL PO SCH (15:26)
[2017-08-22] MEDS: COREG PO SCH ×2 (15:34→21:38)
[2017-08-22] MEDS: APRESOLINE PO SCH ×2 (16:00→21:31)
--- NOTE | 2017-08-22 16:56 | Progress Note ---
Subjective Patient Reports: Positive: no new complaints, feels better, flatus, bowel movement Narrative: surgery flowers , no aches no pains ,abd soft benign had a BM , to have cardic cath Friday will see PRN kraig , I talked with hospitalist . Objective Vital Signs - 12hr 08/22/17 08/22/17 08/22/17 05:00 09:23 09:53 Pulse Rate 77 Respiratory 20 20 Rate Blood Pressure 08/22/17 15:34 Pulse Rate 86 Respiratory Rate Blood Pressure 192/112 - Labs 08/20/17 05:05 08/22/17 05:18 Diabetes panel 08/22/17 Range/Units 05:18 Sodium 139 (137-145) mmol/L Potassium 3.8 (3.6-5.0) mmol/L Chloride 98.2 (98-107) mmol/L Carbon Dioxide 27 (22-30) mmol/L BUN 33 H (7-17) mg/dL Creatinine 2.4 H (0.7-1.2) mg/dL Glucose 188 H (65-100) mg/dL Calcium 8.2 L (8.4-10.2) mg/dL Calcium panel 08/22/17 Range/Units 05:18 Calcium 8.2 L (8.4-10.2) mg/dL Pituitary panel 08/22/17 Range/Units 05:18 Sodium 139 (137-145) mmol/L Potassium 3.8 (3.6-5.0) mmol/L Chloride 98.2 (98-107) mmol/L Carbon Dioxide 27 (22-30) mmol/L BUN 33 H (7-17) mg/dL Creatinine 2.4 H (0.7-1.2) mg/dL Glucose 188 H (65-100) mg/dL Calcium 8.2 L (8.4-10.2) mg/dL Adrenal panel 08/22/17 Range/Units 05:18 Sodium 139 (137-145) mmol/L Potassium 3.8 (3.6-5.0) mmol/L Chloride 98.2 (98-107) mmol/L Carbon Dioxide 27 (22-30) mmol/L BUN 33 H (7-17) mg/dL Creatinine 2.4 H (0.7-1.2) mg/dL Glucose 188 H (65-100) mg/dL Calcium 8.2 L (8.4-10.2) mg/dL
--- NOTE | 2017-08-22 20:15 | Progress Note ---
Assessment and Plan Assessment and plan: 57-year-old -[place] Island[place] female with past medical history significant for hypertension, diabetes, lupus presented with abdominal pain Chronic systolic CHF - case dw cardiology, needs ischemic workup prior to EGD to C-scope Partial small bowel obstruction -now resolved Chest pain abdominal pain may be chest pain variant Stress test was abnormal, plan for cath, it to be scheduled based on her kidney function, Acute on chronic kidney injury/vasomotor nephropathy -Nephrology consult appreciated Uncontrolled Hypertension - Continue with IV hydralazine, clonidine patch Avoid nephrotoxins Diabetes mellitus (hyperglycemia) - SSI - accu check History of lupus - wean off steroids History Interval history: She continues to have abdominal pain, worse after she eats. It is epigastric, dull, 6 out of 10. Exacerbating or relieving factors Review of systems Constitutional: No fevers, no malaise, no joint pains CVS: No chest pain, no orthopnea, no dyspnea on exertion, no pedal edema GI: , no diarrhea, no vomiting, no constipation Respiratory: No shortness of breath, no wheezing, no coughing Hospitalist Physical - Physical exam Narrative exam: General.: Appears well, no distress, nontoxic HEENT: Moist mucous membranes, extraocular muscles intact, no lymphadenopathy Neck: supple Cardiac: S1-S2 heard Lungs: clear to auscultation bilaterally Abdomen: soft , nontender, nondistended, bowel sounds positive Extremities: no edema clubbing or cyanosis Skin: no rash or lesions Neurologic: no gross focal deficits Psych: appropriate behavior, appropriate mood, corporative, judgment intact - Constitutional Vitals: Temp Pulse Resp BP Pulse Ox 97.9 F 84 20 150/78 98 08/22/17 20:00 08/22/17 20:00 08/22/17 20:00 08/22/17 20:00 08/22/17 20:00 General appearance: Present: no acute distress Results - Labs CBC & Chem 7: 08/23/17 16:05 08/24/17 05:21 Labs: Laboratory Last Values WBC 6.8 K/mm3 (4.5-11.0) 08/20/17 05:05 RBC 4.23 M/mm3 (3.65-5.03) 08/20/17 05:05 Hgb 9.3 gm/dl (10.1-14.3) L 08/20/17 05:05 Hct 29.4 % (30.3-42.9) L 08/20/17 05:05 MCV 70 fl (79-97) L 08/20/17 05:05 MCH 22 pg (28-32) L 08/20/17 05:05 MCHC 32 % (30-34) 08/20/17 05:05 RDW 20.2 % (13.2-15.2) H 08/20/17 05:05 Plt Count 267 K/mm3 (140-440) 08/20/17 05:05 Lymph % (Auto) 6.1 % (13.4-35.0) L 08/20/17 05:05 [place] % (Auto) 4.3 % (0.0-7.3) 08/20/17 05:05 Eos % (Auto) 0.0 % (0.0-4.3) 08/20/17 05:05 Baso % (Auto) 0.4 % (0.0-1.8) 08/20/17 05:05 Lymph # 0.4 K/mm3 (1.2-5.4) L 08/20/17 05:05 [place] # 0.3 K/mm3 (0.0-0.8) 08/20/17 05:05 Eos # 0.0 K/mm3 (0.0-0.4) 08/20/17 05:05 Baso # 0.0 K/mm3 (0.0-0.1) 08/20/17 05:05 Seg Neutrophils % 89.2 % (40.0-70.0) H 08/20/17 05:05 Seg Neutrophils # 6.1 K/mm3 (1.8-7.7) 08/20/17 05:05 Sodium 139 mmol/L (137-145) 08/22/17 05:18 Potassium 3.8 mmol/L (3.6-5.0) 08/22/17 05:18 Chloride 98.2 mmol/L (98-107) 08/22/17 05:18 Carbon Dioxide 27 mmol/L (22-30) 08/22/17 05:18 Anion Gap 18 mmol/L 08/22/17 05:18 BUN 33 mg/dL (7-17) H 08/22/17 05:18 Creatinine 2.4 mg/dL (0.7-1.2) H 08/22/17 05:18 Estimated GFR 25 ml/min 08/22/17 05:18 BUN/Creatinine Ratio 14 % 08/22/17 05:18 Glucose 188 mg/dL (65-100) H 08/22/17 05:18 POC Glucose 256 (70-105) H 08/22/17 15:35 Lactic Acid 0.50 mmol/L (0.7-2.0) L 08/17/17 07:15 Calcium 8.2 mg/dL (8.4-10.2) L 08/22/17 05:18 Iron 30 ug/dL (37-170) L 08/18/17 09:54 TIBC 248 mcg/dL (250-450) L 08/18/17 09:54 Total Bilirubin 0.30 mg/dL (0.1-1.2) 08/17/17 07:10 AST 13 units/L (5-40) 08/17/17 07:10 ALT 6 units/L (7-56) L 08/17/17 07:10 Alkaline Phosphatase 105 units/L (35-129) 08/17/17 07:10 Total Creatine Kinase 163 units/L (30-135) H 08/19/17 20:10 CK-MB (CK-2) 2.8 ng/mL (0.0-4.0) 08/19/17 20:10 CK-MB (CK-2) Rel Index 1.7 (0-4) 08/19/17 20:10 Troponin T 0.065 ng/mL (0.00-0.029) H 08/19/17 20:10 NT-Pro-B Natriuret Pep 60725 pg/mL (0-900) H 08/19/17 04:59 Total Protein 7.2 g/dL (6.3-8.2) 08/17/17 07:10 Albumin 3.0 g/dL (3.9-5) L 08/17/17 07:10 Albumin/Globulin Ratio 0.7 % 08/17/17 07:10 Triglycerides 149 mg/dL (2-149) 08/19/17 20:10 Cholesterol 213 mg/dL (50-199) H 08/19/17 20:10 LDL Cholesterol Direct 130 mg/dL (50-130) 08/19/17 20:10 HDL Cholesterol 54 mg/dL (40-59) 08/19/17 20:10 Cholesterol/HDL Ratio 3.94 % 08/19/17 20:10 Lipase 43 units/L (13-60) 08/17/17 07:10 Urine Color Yellow (Yellow) 08/17/17 09:06 Urine Turbidity Clear (Clear) 08/17/17 09:06 Urine pH 7.0 (5.0-7.0) 08/17/17 09:06 Ur Specific [place] 1.013 (1.003-1.030) 08/17/17 09:06 Urine Protein 100 mg/dl mg/dL (Negative) 08/17/17 09:06 Urine Glucose (UA) Neg mg/dL (Negative) 08/17/17 09:06 Urine Ketones Neg mg/dL (Negative) 08/17/17 09:06 Urine Blood Neg (Negative) 08/17/17 09:06 Urine Nitrite Neg (Negative) 08/17/17 09:06 Urine Bilirubin Neg (Negative) 08/17/17 09:06 Urine Urobilinogen < 2.0 mg/dL (<2.0) 08/17/17 09:06 Ur Leukocyte Esterase Neg (Negative) 08/17/17 09:06 Urine WBC (Auto) < 1.0 /HPF (0.0-6.0) 08/17/17 09:06 Urine RBC (Auto) 1.0 /HPF (0.0-6.0) 08/17/17 09:06 U Epithel Cells (Auto) 2.0 /HPF (0-13.0) 08/17/17 09:06 Urine Eosinophils None seen (None Seen) 08/18/17 14:58 Urine Creatinine 53.2 mg/dL (0.1-20.0) H 08/18/17 14:58 Urine Sodium 118 mmol/L 08/18/17 14:58 Urine Urea Nitrogen 303 08/18/17 14:58 Complement C3 120 mg/dL (90-180) 08/18/17 10:46 Complement C4 30 mg/dL (16-47) 08/18/17 10:46
[2017-08-22] MEDS: LOPRESSOR PO SCH (21:30)
[2017-08-22] MEDS: NACL 0.45% 1000 ML 1,000 ML IV SCH (21:30)
[2017-08-23] MEDS: ZOFRAN IV PRN ×4 (04:18→21:52)
[2017-08-23] MEDS: DILAUDID IV PRN ×4 (04:18→21:52)
[2017-08-23] MEDS: APRESOLINE PO SCH ×3 (06:46→21:29)
--- NOTE | 2017-08-23 09:06 | Progress Note ---
Assessment and Plan 1. Precordial chest pain at rest with abnormal cardiac nuclear imaging test. 2. Chronic renal failure 3. Peripheral vascular disease 4. Essential hypertension Plan. Patient is currently stable she is to however complains of precordial chest pain at rest she is scheduled to have a left heart catheterization on Friday we will continue IV hydration over the weekend. Follow BMP. Subjective Date of service: 08/23/17 Principal diagnosis: abdominal pain Interval history: No cardiac symptoms. Objective Vital Signs Temp Pulse Resp Resp Resp BP BP 08/23/17 08:40 20 08/23/17 08:10 98.5 F 69 18 123/70 08/23/17 04:24 97.6 F 63 19 124/63 08/23/17 04:18 18 08/23/17 00:01 97.9 F 62 20 132/70 08/22/17 20:00 97.9 F 84 20 150/78 08/22/17 19:15 80 18 18 08/22/17 17:00 80 08/22/17 16:00 82 178/100 08/22/17 15:55 18 08/22/17 15:34 98.2 F 85 18 192/112 08/22/17 10:00 18 18 08/22/17 09:53 20 08/22/17 09:23 20 Pulse Ox 08/23/17 08:40 08/23/17 08:10 100 08/23/17 04:24 98 08/23/17 04:18 08/23/17 00:01 94 08/22/17 20:00 98 08/22/17 19:15 08/22/17 17:00 08/22/17 16:00 08/22/17 15:55 08/22/17 15:34 98 08/22/17 10:00 08/22/17 09:53 08/22/17 09:23 - Physical Examination General: Appears Well, No Apparent Distress HEENT: Positive: PERRL, Normocephaly, Mucus Membranes Moist Neck: Positive: neck supple. Negative: JVD/HJR Cardiac: Positive: Regular Rate, S1/S2, PMI, Laterally Displaced. Negative: S3 , S4 Lungs: Positive: clear to auscultation, No Wheeze, Rales, Rhonchi Neuro: Positive: Grossly Intact Abdomen: Positive: Unremarkable, Soft, Active Bowel Sounds Skin: Positive: Clear Extremities: Absent: edema
[2017-08-23] MEDS: PROCARDIA XL PO SCH (09:13)
[2017-08-23] MEDS: IMDUR PO SCH (09:13)
[2017-08-23] MEDS: LOPRESSOR PO SCH ×2 (09:13→21:30)
[2017-08-23] MEDS: HALFPRIN EC PO SCH (09:14)
[2017-08-23] MEDS: COREG PO SCH ×2 (09:14→21:30)
[2017-08-23] MEDS: NOVOLOG SUB-Q SCH ×4 (09:25→22:00)
--- NOTE | 2017-08-23 11:09 | Progress Note ---
Assessment and Plan Assessment and plan: 57-year-old -[place] female with past medical history significant for hypertension, diabetes, lupus presented with abdominal pain Chronic systolic CHF - case dw cardiology, needs ischemic workup prior to EGD to C-scope Partial small bowel obstruction -now resolved Chest pain abdominal pain may be chest pain variant Stress test was abnormal, plan for cath, it to be scheduled based on her kidney function, planned for Friday Acute on chronic kidney injury/vasomotor nephropathy -Nephrology consult appreciated Uncontrolled Hypertension - Continue with IV hydralazine, clonidine patch Avoid nephrotoxins Diabetes mellitus (hyperglycemia) - SSI - accu check History of lupus - wean off steroids History Interval history: She continues to have abdominal pain, worse after she eats. It is epigastric, dull, 6 out of 10. Exacerbating or relieving factors Review of systems Constitutional: No fevers, no malaise, no joint pains CVS: No chest pain, no orthopnea, no dyspnea on exertion, no pedal edema GI: , no diarrhea, no vomiting, no constipation Respiratory: No shortness of breath, no wheezing, no coughing Hospitalist Physical - Physical exam Narrative exam: General.: Appears well, no distress, nontoxic HEENT: Moist mucous membranes, extraocular muscles intact, no lymphadenopathy Neck: supple Cardiac: S1-S2 heard Lungs: clear to auscultation bilaterally Abdomen: soft , nontender, nondistended, bowel sounds positive Extremities: no edema clubbing or cyanosis Skin: no rash or lesions Neurologic: no gross focal deficits Psych: appropriate behavior, appropriate mood, corporative, judgment intact - Constitutional Vitals: Temp Pulse Resp BP Pulse Ox 98.5 F 69 20 123/75 100 08/23/17 08:10 08/23/17 08:10 08/23/17 08:40 08/23/17 09:13 08/23/17 08:10 General appearance: Present: no acute distress Results - Labs CBC & Chem 7: 08/23/17 16:05 08/24/17 05:21 Labs: Laboratory Last Values WBC 6.8 K/mm3 (4.5-11.0) 08/20/17 05:05 RBC 4.23 M/mm3 (3.65-5.03) 08/20/17 05:05 Hgb 9.3 gm/dl (10.1-14.3) L 08/20/17 05:05 Hct 29.4 % (30.3-42.9) L 08/20/17 05:05 MCV 70 fl (79-97) L 08/20/17 05:05 MCH 22 pg (28-32) L 08/20/17 05:05 MCHC 32 % (30-34) 08/20/17 05:05 RDW 20.2 % (13.2-15.2) H 08/20/17 05:05 Plt Count 267 K/mm3 (140-440) 08/20/17 05:05 Lymph % (Auto) 6.1 % (13.4-35.0) L 08/20/17 05:05 [place] % (Auto) 4.3 % (0.0-7.3) 08/20/17 05:05 Eos % (Auto) 0.0 % (0.0-4.3) 08/20/17 05:05 Baso % (Auto) 0.4 % (0.0-1.8) 08/20/17 05:05 Lymph # 0.4 K/mm3 (1.2-5.4) L 08/20/17 05:05 [place] # 0.3 K/mm3 (0.0-0.8) 08/20/17 05:05 Eos # 0.0 K/mm3 (0.0-0.4) 08/20/17 05:05 Baso # 0.0 K/mm3 (0.0-0.1) 08/20/17 05:05 Seg Neutrophils % 89.2 % (40.0-70.0) H 08/20/17 05:05 Seg Neutrophils # 6.1 K/mm3 (1.8-7.7) 08/20/17 05:05 Sodium 139 mmol/L (137-145) 08/22/17 05:18 Potassium 3.8 mmol/L (3.6-5.0) 08/22/17 05:18 Chloride 98.2 mmol/L (98-107) 08/22/17 05:18 Carbon Dioxide 27 mmol/L (22-30) 08/22/17 05:18 Anion Gap 18 mmol/L 08/22/17 05:18 BUN 33 mg/dL (7-17) H 08/22/17 05:18 Creatinine 2.4 mg/dL (0.7-1.2) H 08/22/17 05:18 Estimated GFR 25 ml/min 08/22/17 05:18 BUN/Creatinine Ratio 14 % 08/22/17 05:18 Glucose 188 mg/dL (65-100) H 08/22/17 05:18 POC Glucose 258 (70-105) H 08/22/17 21:46 Lactic Acid 0.50 mmol/L (0.7-2.0) L 08/17/17 07:15 Calcium 8.2 mg/dL (8.4-10.2) L 08/22/17 05:18 Iron 30 ug/dL (37-170) L 08/18/17 09:54 TIBC 248 mcg/dL (250-450) L 08/18/17 09:54 Total Bilirubin 0.30 mg/dL (0.1-1.2) 08/17/17 07:10 AST 13 units/L (5-40) 08/17/17 07:10 ALT 6 units/L (7-56) L 08/17/17 07:10 Alkaline Phosphatase 105 units/L (35-129) 08/17/17 07:10 Total Creatine Kinase 163 units/L (30-135) H 08/19/17 20:10 CK-MB (CK-2) 2.8 ng/mL (0.0-4.0) 08/19/17 20:10 CK-MB (CK-2) Rel Index 1.7 (0-4) 08/19/17 20:10 Troponin T 0.065 ng/mL (0.00-0.029) H 08/19/17 20:10 NT-Pro-B Natriuret Pep 47774 pg/mL (0-900) H 08/19/17 04:59 Total Protein 7.2 g/dL (6.3-8.2) 08/17/17 07:10 Albumin 3.0 g/dL (3.9-5) L 08/17/17 07:10 Albumin/Globulin Ratio 0.7 % 08/17/17 07:10 Triglycerides 149 mg/dL (2-149) 08/19/17 20:10 Cholesterol 213 mg/dL (50-199) H 08/19/17 20:10 LDL Cholesterol Direct 130 mg/dL (50-130) 08/19/17 20:10 HDL Cholesterol 54 mg/dL (40-59) 08/19/17 20:10 Cholesterol/HDL Ratio 3.94 % 08/19/17 20:10 Lipase 43 units/L (13-60) 08/17/17 07:10 Urine Color Yellow (Yellow) 08/17/17 09:06 Urine Turbidity Clear (Clear) 08/17/17 09:06 Urine pH 7.0 (5.0-7.0) 08/17/17 09:06 Ur Specific [place] 1.013 (1.003-1.030) 08/17/17 09:06 Urine Protein 100 mg/dl mg/dL (Negative) 08/17/17 09:06 Urine Glucose (UA) Neg mg/dL (Negative) 08/17/17 09:06 Urine Ketones Neg mg/dL (Negative) 08/17/17 09:06 Urine Blood Neg (Negative) 08/17/17 09:06 Urine Nitrite Neg (Negative) 08/17/17 09:06 Urine Bilirubin Neg (Negative) 08/17/17 09:06 Urine Urobilinogen < 2.0 mg/dL (<2.0) 08/17/17 09:06 Ur Leukocyte Esterase Neg (Negative) 08/17/17 09:06 Urine WBC (Auto) < 1.0 /HPF (0.0-6.0) 08/17/17 09:06 Urine RBC (Auto) 1.0 /HPF (0.0-6.0) 08/17/17 09:06 U Epithel Cells (Auto) 2.0 /HPF (0-13.0) 08/17/17 09:06 Urine Eosinophils None seen (None Seen) 08/18/17 14:58 Urine Creatinine 53.2 mg/dL (0.1-20.0) H 08/18/17 14:58 Urine Sodium 118 mmol/L 08/18/17 14:58 Urine Urea Nitrogen 303 08/18/17 14:58 Complement C3 120 mg/dL (90-180) 08/18/17 10:46 Complement C4 30 mg/dL (16-47) 08/18/17 10:46
[2017-08-23] MEDS: PROCRIT SUB-Q SCH (12:35)
[2017-08-23] MEDS: PROTONIX PO SCH (13:03)
--- NOTE | 2017-08-23 13:30 | Progress Note ---
Assessment and Plan Partial Small Bowel Obstruction: -S/p CT Abdomen on 08/17/17 -Surgery consulted, no surgery intervention, eating, had bowel movement -Patient tolerating diet Chest Pain: -Cardiology on board, TTE LVEF 40-45%, s/p abnormal stress test, planning on cardiac cath on Friday -Follow up cardiology recs Acute Kidney Injury possibly secondary to prerenal, ATN, cardiorenal syndrome, underlying chronic kidney disease stage 3 possibly secondary to Diabetic Nephropathy, Hypertensive Nephrosclerosis, or Lupus: -BMP pending today -Renally dose medications -Obtain daily weight -Strict intake and output -Cardiology on board, TTE LVEF 40-45%, s/p abnormal stress test, planning on cardiac cath on Friday. Patient was informed about risk of EDITH after cardiac cath and accepted risks -Continue on 0.45% NS infusion at 50 ml/hr, monitor volume and respiratory status closely -Continue to hold diuretics for now, if any signs of volume overload or respiratory distress, will restart diuretics -Renal plan discussed with Dr Rodgers -Continue supportive therapy Acute on Chronic systolic Congestive Heart Failure: -Cardiology on board, TTE 40-45% -Lasix on hold, started on gentle IV fluids, monitor volume status closely -Planning on cardiac cath on Friday08/25/17 Diabetes Mellitus Type 2 insulin dependent: -On insulin -As per primary team Hypertensive CKD Stage 3: -Blood pressure stable on current regimen -Avoid ACEI or ARBs at this time Anemia of chronic disease: -CBC pending today -On Epogen dosing for anemia management Subjective Date of service: 08/23/17 Principal diagnosis: abdominal pain Interval history: Patient reports she continues to have chest pain today, denies shortness of breath, no acute distress. No family at bedside Objective - Vital Signs Vital signs: Vital Signs - 12hr 08/23/17 08/23/17 08/23/17 04:18 04:24 08:10 Temperature 97.6 F 98.5 F Pulse Rate 63 69 Respiratory 18 19 18 Rate Blood Pressure 124/63 Blood Pressure 123/70 [Right] O2 Sat by Pulse 98 100 Oximetry 08/23/17 08/23/17 08/23/17 08:40 09:13 13:07 Temperature 98.4 F Pulse Rate 59 L Respiratory 20 18 Rate Blood Pressure 123/75 Blood Pressure 131/71 [Right] O2 Sat by Pulse 100 Oximetry - General Appearance General appearance: well-nourished (no acute distress) EENT: ATNC Neck: no JVD Respiratory: Present: Other (Lung sounds decreased bilaterally, unlabored) Cardiology: regular, S1S2 Gastrointestinal: normoactive bowel sounds, no tenderness Integumentary: warm and dry Neurologic: alert and oriented x3 Musculoskeletal: other (no edema to both lower extremities) Psychiatric: mood/affect appropriate, cooperative - Lab 08/20/17 05:05 08/22/17 05:18 Most recent lab results Calcium 8.2 mg/dL (8.4-10.2) L 08/22/17 05:18 Urine Creatinine 53.2 mg/dL (0.1-20.0) H 08/18/17 14:58 Urine Sodium 118 mmol/L 08/18/17 14:58
[2017-08-23 16:33] LABS: Hematocrit 34.3 % (30.3-42.9); Hemoglobin 10.7 gm/dl (10.1-14.3); Mean Corpuscular HGB Conc 31 % (30-34); Mean Corpuscular Volume 70 fl (79-97); Red Blood Count 4.88 M/mm3 (3.65-5.03)
[2017-08-23 17:01] LABS: Mean Corpuscular Hemoglobin 22 pg (28-32); Platelet Count 334 K/mm3 (140-440); Red Cell Distribution Width 20.1 % (13.2-15.2)
[2017-08-23] MEDS: NACL 0.45% 1000 ML 1,000 ML IV SCH (17:46)
[2017-08-23 20:28] LABS: Calcium 8.2 mg/dL (8.4-10.2)
[2017-08-23 20:29] LABS: Chloride 96.5 mmol/L (98-107); Potassium 3.7 mmol/L (3.6-5.0)
[2017-08-23] MEDS: AMBIEN PO PRN (21:31)
[2017-08-24] MEDS: DILAUDID IV PRN ×4 (03:25→23:24)
[2017-08-24] MEDS: ZOFRAN IV PRN ×4 (03:26→23:24)
[2017-08-24] MEDS: APRESOLINE PO SCH ×3 (05:50→22:57)
[2017-08-24 07:19] LABS: Calcium 8.3 mg/dL (8.4-10.2); Chloride 102.8 mmol/L (98-107); Potassium 3.5 mmol/L (3.6-5.0)
[2017-08-24] MEDS: NOVOLOG SUB-Q SCH ×4 (08:41→23:11)
--- NOTE | 2017-08-24 09:34 | Progress Note ---
Assessment and Plan 1. Precordial chest pain at rest with abnormal cardiac nuclear imaging test. 2. Chronic renal failure 3. Peripheral vascular disease 4. Essential hypertension Plan. Patient is currently stable she is to however complains of precordial chest pain at rest she is scheduled to have a left heart catheterization on Friday we will continue IV hydration over the weekend. Follow BMP. Subjective Date of service: 08/24/17 Principal diagnosis: abdominal pain Interval history: No cardiac symptoms. Objective Vital Signs Temp Pulse Resp Resp BP BP Pulse Ox 08/24/17 04:29 98.2 F 69 18 114/55 97 08/23/17 23:46 98.4 F 72 18 104/54 100 08/23/17 22:00 18 18 08/23/17 21:30 75 138/70 08/23/17 21:29 75 138/75 08/23/17 19:45 98.1 F 71 18 110/56 99 08/23/17 16:57 98.3 F 68 18 110/60 100 08/23/17 16:26 131/71 08/23/17 13:07 98.4 F 59 L 18 131/71 100 08/23/17 12:13 98.4 F 59 L 18 131/71 100 - Physical Examination General: Appears Well, No Apparent Distress HEENT: Positive: PERRL, Normocephaly, Mucus Membranes Moist Neck: Positive: neck supple. Negative: JVD/HJR Cardiac: Positive: Regular Rate, S1/S2, S4, PMI, Laterally Displaced Lungs: Positive: clear to auscultation, No Wheeze, Rales, Rhonchi Neuro: Positive: Grossly Intact Abdomen: Positive: Unremarkable, Soft, Active Bowel Sounds Skin: Positive: Clear Extremities: Absent: edema - Labs and Meds CBC 08/23/17 Range/Units 16:05 WBC 13.0 H (4.5-11.0) K/mm3 RBC 4.88 (3.65-5.03) M/mm3 Hgb 10.7 (10.1-14.3) gm/dl Hct 34.3 (30.3-42.9) % Plt Count 334 (140-440) K/mm3 Comprehensive Metabolic Panel 08/23/17 08/24/17 Range/Units 19:23 05:21 Sodium 137 141 (137-145) mmol/L Potassium 3.7 3.5 L (3.6-5.0) mmol/L Chloride 96.5 L 102.8 (98-107) mmol/L Carbon Dioxide 25 24 (22-30) mmol/L BUN 47 H 43 H (7-17) mg/dL Creatinine 2.3 H 2.2 H (0.7-1.2) mg/dL Glucose 246 H 198 H (65-100) mg/dL Calcium 8.2 L 8.3 L (8.4-10.2) mg/dL - Telemetry EKG Rhythm: Sinus Rhythm
[2017-08-24] MEDS: HALFPRIN EC PO SCH (10:41)
[2017-08-24] MEDS: IMDUR PO SCH (10:41)
[2017-08-24] MEDS: COREG PO SCH ×2 (10:42→22:57)
[2017-08-24] MEDS: LOPRESSOR PO SCH ×2 (10:42→22:57)
[2017-08-24] MEDS: PROTONIX PO SCH (10:42)
[2017-08-24] MEDS: PROCARDIA XL PO SCH (10:42)
[2017-08-24] MEDS: MUCOMYST ORAL PO SCH ×2 (11:18→23:22)
--- NOTE | 2017-08-24 13:19 | Progress Note ---
Assessment and Plan Assessment and plan: 57-year-old -Stateless female with past medical history significant for hypertension, diabetes, lupus presented with abdominal pain Chronic systolic CHF - case dw cardiology, needs ischemic workup prior to EGD to C-scope Partial small bowel obstruction -now resolved Chest pain abdominal pain may be chest pain variant Stress test was abnormal, plan for cath, it to be scheduled based on her kidney function, planned for Friday Acute on chronic kidney injury/vasomotor nephropathy -Nephrology consult appreciated Uncontrolled Hypertension - Continue with IV hydralazine, clonidine patch Avoid nephrotoxins Diabetes mellitus (hyperglycemia) - SSI - accu check History of lupus - wean off steroids History Interval history: She continues to have abdominal pain, worse after she eats. It is epigastric, dull, 6 out of 10. Exacerbating or relieving factors Review of systems Constitutional: No fevers, no malaise, no joint pains CVS: No chest pain, no orthopnea, no dyspnea on exertion, no pedal edema GI: , no diarrhea, no vomiting, no constipation Respiratory: No shortness of breath, no wheezing, no coughing Hospitalist Physical - Physical exam Narrative exam: General.: Appears well, no distress, nontoxic HEENT: Moist mucous membranes, extraocular muscles intact, no lymphadenopathy Neck: supple Cardiac: S1-S2 heard Lungs: clear to auscultation bilaterally Abdomen: soft , nontender, nondistended, bowel sounds positive Extremities: no edema clubbing or cyanosis Skin: no rash or lesions Neurologic: no gross focal deficits Psych: appropriate behavior, appropriate mood, corporative, judgment intact - Constitutional Vitals: Temp Pulse Resp BP Pulse Ox 98.2 F 68 18 140/77 98 08/24/17 13:06 08/24/17 13:06 08/24/17 13:06 08/24/17 13:06 08/24/17 13:06 General appearance: Present: no acute distress Results - Labs CBC & Chem 7: 08/23/17 16:05 08/24/17 05:21 Labs: Laboratory Last Values WBC 13.0 K/mm3 (4.5-11.0) H 08/23/17 16:05 RBC 4.88 M/mm3 (3.65-5.03) 08/23/17 16:05 Hgb 10.7 gm/dl (10.1-14.3) 08/23/17 16:05 Hct 34.3 % (30.3-42.9) 08/23/17 16:05 MCV 70 fl (79-97) L 08/23/17 16:05 MCH 22 pg (28-32) L 08/23/17 16:05 MCHC 31 % (30-34) 08/23/17 16:05 RDW 20.1 % (13.2-15.2) H 08/23/17 16:05 Plt Count 334 K/mm3 (140-440) 08/23/17 16:05 Lymph % (Auto) 6.1 % (13.4-35.0) L 08/20/17 05:05 [place] % (Auto) 4.3 % (0.0-7.3) 08/20/17 05:05 Eos % (Auto) 0.0 % (0.0-4.3) 08/20/17 05:05 Baso % (Auto) 0.4 % (0.0-1.8) 08/20/17 05:05 Lymph # 0.4 K/mm3 (1.2-5.4) L 08/20/17 05:05 [place] # 0.3 K/mm3 (0.0-0.8) 08/20/17 05:05 Eos # 0.0 K/mm3 (0.0-0.4) 08/20/17 05:05 Baso # 0.0 K/mm3 (0.0-0.1) 08/20/17 05:05 Seg Neutrophils % 89.2 % (40.0-70.0) H 08/20/17 05:05 Seg Neutrophils # 6.1 K/mm3 (1.8-7.7) 08/20/17 05:05 Sodium 141 mmol/L (137-145) 08/24/17 05:21 Potassium 3.5 mmol/L (3.6-5.0) L 08/24/17 05:21 Chloride 102.8 mmol/L (98-107) 08/24/17 05:21 Carbon Dioxide 24 mmol/L (22-30) 08/24/17 05:21 Anion Gap 18 mmol/L 08/24/17 05:21 BUN 43 mg/dL (7-17) H 08/24/17 05:21 Creatinine 2.2 mg/dL (0.7-1.2) H 08/24/17 05:21 Estimated GFR 28 ml/min 08/24/17 05:21 BUN/Creatinine Ratio 20 % 08/24/17 05:21 Glucose 198 mg/dL (65-100) H 08/24/17 05:21 POC Glucose 238 (70-105) H 08/24/17 11:39 Lactic Acid 0.50 mmol/L (0.7-2.0) L 08/17/17 07:15 Calcium 8.3 mg/dL (8.4-10.2) L 08/24/17 05:21 Iron 30 ug/dL (37-170) L 08/18/17 09:54 TIBC 248 mcg/dL (250-450) L 08/18/17 09:54 Total Bilirubin 0.30 mg/dL (0.1-1.2) 08/17/17 07:10 AST 13 units/L (5-40) 08/17/17 07:10 ALT 6 units/L (7-56) L 08/17/17 07:10 Alkaline Phosphatase 105 units/L (35-129) 08/17/17 07:10 Total Creatine Kinase 163 units/L (30-135) H 08/19/17 20:10 CK-MB (CK-2) 2.8 ng/mL (0.0-4.0) 08/19/17 20:10 CK-MB (CK-2) Rel Index 1.7 (0-4) 08/19/17 20:10 Troponin T 0.065 ng/mL (0.00-0.029) H 08/19/17 20:10 NT-Pro-B Natriuret Pep 95899 pg/mL (0-900) H 08/19/17 04:59 Total Protein 7.2 g/dL (6.3-8.2) 08/17/17 07:10 Albumin 3.0 g/dL (3.9-5) L 08/17/17 07:10 Albumin/Globulin Ratio 0.7 % 08/17/17 07:10 Triglycerides 149 mg/dL (2-149) 08/19/17 20:10 Cholesterol 213 mg/dL (50-199) H 08/19/17 20:10 LDL Cholesterol Direct 130 mg/dL (50-130) 08/19/17 20:10 HDL Cholesterol 54 mg/dL (40-59) 08/19/17 20:10 Cholesterol/HDL Ratio 3.94 % 08/19/17 20:10 Lipase 43 units/L (13-60) 08/17/17 07:10 Urine Color Yellow (Yellow) 08/17/17 09:06 Urine Turbidity Clear (Clear) 08/17/17 09:06 Urine pH 7.0 (5.0-7.0) 08/17/17 09:06 Ur Specific [place] 1.013 (1.003-1.030) 08/17/17 09:06 Urine Protein 100 mg/dl mg/dL (Negative) 08/17/17 09:06 Urine Glucose (UA) Neg mg/dL (Negative) 08/17/17 09:06 Urine Ketones Neg mg/dL (Negative) 08/17/17 09:06 Urine Blood Neg (Negative) 08/17/17 09:06 Urine Nitrite Neg (Negative) 08/17/17 09:06 Urine Bilirubin Neg (Negative) 08/17/17 09:06 Urine Urobilinogen < 2.0 mg/dL (<2.0) 08/17/17 09:06 Ur Leukocyte Esterase Neg (Negative) 08/17/17 09:06 Urine WBC (Auto) < 1.0 /HPF (0.0-6.0) 08/17/17 09:06 Urine RBC (Auto) 1.0 /HPF (0.0-6.0) 08/17/17 09:06 U Epithel Cells (Auto) 2.0 /HPF (0-13.0) 08/17/17 09:06 Urine Eosinophils None seen (None Seen) 08/18/17 14:58 Urine Creatinine 53.2 mg/dL (0.1-20.0) H 08/18/17 14:58 Urine Sodium 118 mmol/L 08/18/17 14:58 Urine Urea Nitrogen 303 08/18/17 14:58 Complement C3 120 mg/dL (90-180) 08/18/17 10:46 Complement C4 30 mg/dL (16-47) 08/18/17 10:46
--- NOTE | 2017-08-24 15:14 | Progress Note ---
Assessment and Plan Partial Small Bowel Obstruction: -S/p CT Abdomen on 08/17/17 -Surgery consulted, no surgical intervention, eating, had bowel movement -Patient tolerating diet Chest Pain: -Cardiology on board, TTE LVEF 40-45%, s/p abnormal stress test, planning on cardiac cath on tomorrow -Follow up cardiology recs Acute Kidney Injury possibly secondary to prerenal, ATN, cardiorenal syndrome, underlying chronic kidney disease stage 3 possibly secondary to Diabetic Nephropathy, Hypertensive Nephrosclerosis, or Lupus: -Renal function reviewed, SCr level was -Renally dose medications -Obtain daily weight -Strict intake and output -Cardiology on board, TTE LVEF 40-45%, s/p abnormal stress test, planning on cardiac cath on Friday. Patient was informed about risk of EDITH after cardiac cath and accepted risks -Continue on 0.45% NS infusion at 50 ml/hr, monitor volume and respiratory status closely -Continue to hold diuretics for now, if any signs of volume overload or respiratory distress, will restart diuretics -Renal plan discussed with Dr Rodgers -Continue supportive therapy Hypokalemia: -Replete potassium -Check magnesium level Acute on Chronic systolic Congestive Heart Failure: -Cardiology on board, TTE 40-45% -Lasix on hold, continue on gentle IV fluids, monitor volume status closely -Planning on cardiac cath on Friday08/25/17 Diabetes Mellitus Type 2 insulin dependent: -On insulin -As per primary team Hypertensive CKD Stage 3: -Blood pressure stable on current regimen -Avoid ACEI or ARBs at this time Anemia of chronic disease: -Hgb 10.7 today -On Epogen dosing for anemia management Subjective Date of service: 08/24/17 Principal diagnosis: abdominal pain Interval history: Patient reports feeling ok at this time, states her peripheral IV infiltrated, awaiting new IV placement. Patient denies shortness of breath, no acute distress. No family at bedside Objective - Vital Signs Vital signs: Vital Signs - 12hr 08/24/17 08/24/17 08/24/17 04:29 09:55 13:06 Temperature 98.2 F 98.4 F 98.2 F Pulse Rate 69 61 68 Respiratory 18 18 18 Rate Blood Pressure 114/55 Blood Pressure 126/68 140/77 [Right] O2 Sat by Pulse 97 99 98 Oximetry - General Appearance General appearance: well-nourished (no acute distress) EENT: ATNC Neck: no JVD Respiratory: Present: Other (Lung sounds decreased bilaterally, unlabored) Cardiology: regular, S1S2 Gastrointestinal: normoactive bowel sounds, no tenderness Integumentary: warm and dry Neurologic: alert and oriented x3 Musculoskeletal: other (no edema to both lower extremities) Psychiatric: mood/affect appropriate, cooperative - Lab 08/23/17 16:05 08/24/17 05:21 Most recent lab results Calcium 8.3 mg/dL (8.4-10.2) L 08/24/17 05:21 Urine Creatinine 53.2 mg/dL (0.1-20.0) H 08/18/17 14:58 Urine Sodium 118 mmol/L 08/18/17 14:58
[2017-08-24] MEDS ORDERED: K-DUR PO ONE (16:00)
[2017-08-24] MEDS: CATAPRES-TTS PATCH TD SCH (18:25)
[2017-08-24] MEDS: AMBIEN PO PRN (22:57)
[2017-08-25] MEDS: DILAUDID IV PRN ×5 (03:38→20:37)
[2017-08-25] MEDS: ZOFRAN IV PRN ×5 (03:38→20:36)
[2017-08-25] MEDS: NACL 0.45% 1000 ML 1,000 ML IV SCH (03:39)
[2017-08-25] MEDS: APRESOLINE PO SCH ×3 (06:00→22:40)
[2017-08-25 06:30] LABS: Calcium 8.3 mg/dL (8.4-10.2); Chloride 103.8 mmol/L (98-107); Potassium 3.6 mmol/L (3.6-5.0)
[2017-08-25 06:51] LABS: Basophils % (Auto) 0.3 % (0.0-1.8); Eosinophils % (Auto) 0.1 % (0.0-4.3); Hemoglobin 8.8 gm/dl (10.1-14.3); Mean Corpuscular HGB Conc 31 % (30-34); Platelet Count 303 K/mm3 (140-440); Red Blood Count 4.05 M/mm3 (3.65-5.03); Red Cell Distribution Width 19.4 % (13.2-15.2); White Blood Count 14.1 K/mm3 (4.5-11.0)
[2017-08-25 07:06] LABS: Mean Corpuscular Hemoglobin 22 pg (28-32); Mean Corpuscular Volume 69 fl (79-97)
[2017-08-25] MEDS: NOVOLOG SUB-Q SCH ×4 (07:51→22:41)
--- NOTE | 2017-08-25 10:38 | Progress Note ---
Assessment and Plan Acute Kidney injury possible pre renal vs cardiorenal. Chronic Kidney disease stage 3: -BL Cr around 1.6 to 1.7 -Possibly may have CKD from from HTN/DM or from lupus. -Has had protein on Urine -CXR was congested, TTE shows LVEF 40-45%. -Cr stable. -Cardiac cath today. Risks and benefits of Cardiac cath were discussed with patient risks including worsening of Kidney failure including need for temporary or permanent hemodialysis. Pt accepts risks involved. -Can continue IVFs 12 hours post cath to decrease EDITH risk. Keep close eye on volume status during this time as does have CHF. In the event that she goes into repertory distress then at that time will have to hold IVFs and restart the diuretics. Also given mucomyst 600 mg BID X 4 doses to decrease EDITH risk. -Renally dose all meds and avoid nephrotoxic meds -Ordered Complement levels, Anti DsDNA. UA showed some protein but no red cells. Complement levels WNLs. -Pt may need ARB to protect kidney from DM but this can be done outpatient once renal function stable. Partial Small bowel obstruction: -On CT -Per primary and GS -Having BM and eating now. Acute on chronic systolic congestive heart failure: -TTE shows LVEF 40-45%, CXR congested. -Management as in JUANA section. Cards on board. Essential hypertension: -Titrate BP meds to keep SBP <130/80 -Avoid ARBs, Yevgeniy inh for now Anemia of chronic disease: -Start Epogen to keep Hg 10-12 -Transfuse PRN per primary Diabetes mellitus type 2 on insulin: -On ISS -Per primary Hyperlipidemia, chronic: -Statin -Target LDL <80 Nimesh Dotson MD Nephrology, Hypertension, Dialysis, Transplantation Phone no: [phone] Subjective Date of service: 08/25/17 Principal diagnosis: abdominal pain Interval history: Cr stable. Cardiac cath today. Making urine. Objective - Exam Narrative Exam: GE: AAOX3 HEENT: PERRLA Neck: Supple Chest: Coarse BS BL CVS: RRR Abd: BS+ Ext: No cce Psyche: Appropriate mood - Vital Signs Vital signs: Vital Signs - 12hr 08/24/17 08/25/17 08/25/17 23:56 01:00 04:08 Temperature 98.6 F Pulse Rate 72 75 Respiratory 18 18 Rate Blood Pressure 132/71 O2 Sat by Pulse 98 Oximetry 08/25/17 08/25/17 04:15 07:00 Temperature 98.8 F 98.4 F Pulse Rate 72 71 Respiratory 18 18 Rate Blood Pressure 125/70 146/80 O2 Sat by Pulse 100 100 Oximetry - Lab 08/25/17 06:28 08/25/17 04:49 Most recent lab results Calcium 8.3 mg/dL (8.4-10.2) L 08/25/17 04:49 Magnesium 1.90 mg/dL (1.7-2.3) 08/24/17 15:28 Urine Creatinine 53.2 mg/dL (0.1-20.0) H 08/18/17 14:58 Urine Sodium 118 mmol/L 08/18/17 14:58
--- NOTE | 2017-08-25 12:41 | Progress Note ---
Assessment and Plan Assessment and plan: 57-year-old -German female with past medical history significant for hypertension, diabetes, lupus presented with abdominal pain Chronic systolic CHF - case dw cardiology, needs ischemic workup prior to EGD to C-scope Partial small bowel obstruction -now resolved Chest pain/CAD abdominal pain may be chest pain variant for cardiac cath today Acute on chronic kidney injury/vasomotor nephropathy -Nephrology consult appreciated Uncontrolled Hypertension - Continue with IV hydralazine, clonidine patch Avoid nephrotoxins Diabetes mellitus (hyperglycemia) - SSI - accu check History of lupus - stable ntd History Interval history: She continues to have abdominal pain, worse after she eats. It is epigastric, dull, 6 out of 10. Exacerbating or relieving factors Review of systems Constitutional: No fevers, no malaise, no joint pains CVS: No chest pain, no orthopnea, no dyspnea on exertion, no pedal edema GI: , no diarrhea, no vomiting, no constipation Respiratory: No shortness of breath, no wheezing, no coughing Hospitalist Physical - Physical exam Narrative exam: General.: Appears well, no distress, nontoxic HEENT: Moist mucous membranes, extraocular muscles intact, no lymphadenopathy Neck: supple Cardiac: S1-S2 heard Lungs: clear to auscultation bilaterally Abdomen: soft , nontender, nondistended, bowel sounds positive Extremities: no edema clubbing or cyanosis Skin: no rash or lesions Neurologic: no gross focal deficits Psych: appropriate behavior, appropriate mood, corporative, judgment intact - Constitutional Vitals: Temp Pulse Resp BP Pulse Ox 98.8 F 63 18 149/85 98 08/25/17 12:21 08/25/17 12:21 08/25/17 12:21 08/25/17 12:21 08/25/17 12:21 General appearance: Present: no acute distress Results - Labs CBC & Chem 7: 08/25/17 06:28 08/25/17 04:49 Labs: Laboratory Last Values WBC 14.1 K/mm3 (4.5-11.0) H 08/25/17 06:28 RBC 4.05 M/mm3 (3.65-5.03) 08/25/17 06:28 Hgb 8.8 gm/dl (10.1-14.3) L 08/25/17 06:28 Hct 28.0 % (30.3-42.9) L D 08/25/17 06:28 MCV 69 fl (79-97) L 08/25/17 06:28 MCH 22 pg (28-32) L 08/25/17 06:28 MCHC 31 % (30-34) 08/25/17 06:28 RDW 19.4 % (13.2-15.2) H 08/25/17 06:28 Plt Count 303 K/mm3 (140-440) 08/25/17 06:28 Lymph % (Auto) 8.6 % (13.4-35.0) L 08/25/17 06:28 Sharp % (Auto) 7.2 % (0.0-7.3) 08/25/17 06:28 Eos % (Auto) 0.1 % (0.0-4.3) 08/25/17 06:28 Baso % (Auto) 0.3 % (0.0-1.8) 08/25/17 06:28 Lymph # 1.2 K/mm3 (1.2-5.4) 08/25/17 06:28 Sharp # 1.0 K/mm3 (0.0-0.8) H 08/25/17 06:28 Eos # 0.0 K/mm3 (0.0-0.4) 08/25/17 06:28 Baso # 0.0 K/mm3 (0.0-0.1) 08/25/17 06:28 Seg Neutrophils % 83.8 % (40.0-70.0) H 08/25/17 06:28 Seg Neutrophils # 11.8 K/mm3 (1.8-7.7) H 08/25/17 06:28 Sodium 141 mmol/L (137-145) 08/25/17 04:49 Potassium 3.6 mmol/L (3.6-5.0) 08/25/17 04:49 Chloride 103.8 mmol/L (98-107) 08/25/17 04:49 Carbon Dioxide 25 mmol/L (22-30) 08/25/17 04:49 Anion Gap 16 mmol/L 08/25/17 04:49 BUN 39 mg/dL (7-17) H 08/25/17 04:49 Creatinine 2.2 mg/dL (0.7-1.2) H 08/25/17 04:49 Estimated GFR 28 ml/min 08/25/17 04:49 BUN/Creatinine Ratio 18 % 08/25/17 04:49 Glucose 123 mg/dL (65-100) H 08/25/17 04:49 POC Glucose 101 (70-105) 08/25/17 10:50 Lactic Acid 0.50 mmol/L (0.7-2.0) L 08/17/17 07:15 Calcium 8.3 mg/dL (8.4-10.2) L 08/25/17 04:49 Magnesium 1.90 mg/dL (1.7-2.3) 08/24/17 15:28 Iron 30 ug/dL (37-170) L 08/18/17 09:54 TIBC 248 mcg/dL (250-450) L 08/18/17 09:54 Total Bilirubin 0.30 mg/dL (0.1-1.2) 08/17/17 07:10 AST 13 units/L (5-40) 08/17/17 07:10 ALT 6 units/L (7-56) L 08/17/17 07:10 Alkaline Phosphatase 105 units/L (35-129) 08/17/17 07:10 Total Creatine Kinase 163 units/L (30-135) H 08/19/17 20:10 CK-MB (CK-2) 2.8 ng/mL (0.0-4.0) 08/19/17 20:10 CK-MB (CK-2) Rel Index 1.7 (0-4) 08/19/17 20:10 Troponin T 0.065 ng/mL (0.00-0.029) H 08/19/17 20:10 NT-Pro-B Natriuret Pep 64394 pg/mL (0-900) H 08/19/17 04:59 Total Protein 7.2 g/dL (6.3-8.2) 08/17/17 07:10 Albumin 3.0 g/dL (3.9-5) L 08/17/17 07:10 Albumin/Globulin Ratio 0.7 % 08/17/17 07:10 Triglycerides 149 mg/dL (2-149) 08/19/17 20:10 Cholesterol 213 mg/dL (50-199) H 08/19/17 20:10 LDL Cholesterol Direct 130 mg/dL (50-130) 08/19/17 20:10 HDL Cholesterol 54 mg/dL (40-59) 08/19/17 20:10 Cholesterol/HDL Ratio 3.94 % 08/19/17 20:10 Lipase 43 units/L (13-60) 08/17/17 07:10 Urine Color Yellow (Yellow) 08/17/17 09:06 Urine Turbidity Clear (Clear) 08/17/17 09:06 Urine pH 7.0 (5.0-7.0) 08/17/17 09:06 Ur Specific Sylvester 1.013 (1.003-1.030) 08/17/17 09:06 Urine Protein 100 mg/dl mg/dL (Negative) 08/17/17 09:06 Urine Glucose (UA) Neg mg/dL (Negative) 08/17/17 09:06 Urine Ketones Neg mg/dL (Negative) 08/17/17 09:06 Urine Blood Neg (Negative) 08/17/17 09:06 Urine Nitrite Neg (Negative) 08/17/17 09:06 Urine Bilirubin Neg (Negative) 08/17/17 09:06 Urine Urobilinogen < 2.0 mg/dL (<2.0) 08/17/17 09:06 Ur Leukocyte Esterase Neg (Negative) 08/17/17 09:06 Urine WBC (Auto) < 1.0 /HPF (0.0-6.0) 08/17/17 09:06 Urine RBC (Auto) 1.0 /HPF (0.0-6.0) 08/17/17 09:06 U Epithel Cells (Auto) 2.0 /HPF (0-13.0) 08/17/17 09:06 Urine Eosinophils None seen (None Seen) 08/18/17 14:58 Urine Creatinine 53.2 mg/dL (0.1-20.0) H 08/18/17 14:58 Urine Sodium 118 mmol/L 08/18/17 14:58 Urine Urea Nitrogen 303 08/18/17 14:58 Complement C3 120 mg/dL (90-180) 08/18/17 10:46 Complement C4 30 mg/dL (16-47) 08/18/17 10:46
[2017-08-25] MEDS ORDERED: HEPARIN 10,000 UNITS/10 ML ONE (13:03)
[2017-08-25] MEDS ORDERED: HEPARIN/NS 5000 UNIT/500ML(CATH LAB) 1,000 ML IR ONE (13:03)
[2017-08-25] MEDS ORDERED: NACL 0.9% 250ML 250 ML ONE (13:05)
[2017-08-25] MEDS: VERSED ONE ×2 (13:18→13:33)
[2017-08-25] MEDS: SUBLIMAZE ONE ×2 (13:18→13:34)
[2017-08-25] MEDS: XYLOCAINE 2% INFILTRATI ONE ×2 (13:19→13:36)
[2017-08-25] MEDS ORDERED: APRESOLINE ONE (13:39)
--- NOTE | 2017-08-25 14:14 | Event Note ---
Date: 08/25/17 Cardiac cath completed, total contrast 40cc. Findings: 1. Severe complex bifurcation stenosis of the mid circumflex. 2. LAD and RCA without severe lesions. Recommendation: Angios will be reviewed for revascularization options-patient is HIGH RISK for ATN.
[2017-08-25] MEDS ORDERED: NACL 0.9% 1000 ML 1,000 ML IV SCH (15:00)
--- NOTE | 2017-08-25 15:17 | Cardiac Catherization Report ---
CARDIAC CATHETERIZATION REASON FOR PROCEDURE: The patient is a 57-year-old woman, who presented to the hospital primarily with symptoms associated with acute small-bowel obstruction. She was placed on conservative management with NG tube suction. During her course, she developed acute shortness of breath with chest x-ray consistent with pulmonary edema. Following treatment of heart failure, Persantine thallium stress test was abnormal, prompting a recommendation for cardiac catheterization. Comorbidities include chronic kidney disease with a creatinine of 2.0. Despite several days of management with Nephrology, the patient's creatinine remained unchanged at 2.0. Cardiac catheterization procedure is done after extensive discussions with the patient regarding elevated risk of contrast nephropathy. She is aware of the risk and consented to proceed. Plan at this time will be for coronary angiography only with minimal contrast load of Visipaque. PROCEDURE: The patient was prepped and draped in a sterile fashion after informed consent. Right femoral artery was entered using the Seldinger technique followed by placement of a 6-Prydeinig sheath. Selective left and right coronary angiography was performed using #4 right and left Christiano catheters. The catheters were removed, sheath removed, and hemostasis achieved using an Angio-Seal device. The patient was returned to the postprocedure unit in stable condition. There were no complications. FINDINGS: HEMODYNAMICS: Ascending aortic pressure was 198/94. CORONARY ANGIOGRAPHY: The left main coronary artery was free of significant disease. There was mild atherosclerosis of the proximal and mid segments of the LAD, with no significant lesions noted. The circumflex artery contained a long occlusive lesion in its mid AV groove segment, with up to 90% luminal stenosis. Within this segment, there originated a medium to large mid obtuse marginal branch. There was a 70% to 80% stenosis of the ostium of the mid obtuse marginal. The mid circumflex and ostial OM lesions result in delayed antegrade flow, RAGHAVENDRA 2 flow into the mid obtuse marginal. The right coronary artery was dominant. This vessel contained nonobstructive disease in its proximal and mid segments. There was a 30% luminal stenosis of the mid vessel noted at the acute margin. Left ventricle angiography was not performed. Total contrast used for coronary angiography was 40 mL of Visipaque. CONCLUSION: 1. Coronary artery disease. 2. Severe obstructive disease of the mid circumflex and mid obtuse marginal branch. 3. Total contrast used was 40 mL. RECOMMENDATION: 1. Medical therapy, risk factor modification, post-cath optimization of renal status. 2. Further therapeutic management of the circumflex disease will depend on clinical course. JOB# [id number] JANEY/FRAN
[2017-08-25] MEDS: PROCARDIA XL PO SCH (16:39)
[2017-08-25] MEDS: COREG PO SCH ×2 (18:41→22:40)
[2017-08-25] MEDS: MUCOMYST ORAL PO SCH ×2 (18:41→22:41)
[2017-08-25] MEDS: PROTONIX PO SCH (18:41)
[2017-08-25] MEDS: IMDUR PO SCH (18:41)
[2017-08-25] MEDS: LOPRESSOR PO SCH ×2 (18:41→22:41)
[2017-08-25] MEDS: HALFPRIN EC PO SCH (18:41)
[2017-08-25] MEDS: PROCRIT SUB-Q SCH (18:42)
[2017-08-25] MEDS: AMBIEN PO PRN (22:47)
[2017-08-26] MEDS: DILAUDID IV PRN ×5 (01:23→21:24)
[2017-08-26] MEDS: ZOFRAN IV PRN ×5 (01:23→21:24)
[2017-08-26] MEDS: APRESOLINE PO SCH ×3 (06:22→21:26)
[2017-08-26] MEDS: NOVOLOG SUB-Q SCH ×4 (08:26→23:12)
[2017-08-26] MEDS: HALFPRIN EC PO SCH (09:46)
[2017-08-26] MEDS: PROCARDIA XL PO SCH (09:47)
[2017-08-26] MEDS: IMDUR PO SCH (09:47)
[2017-08-26] MEDS: COREG PO SCH ×2 (09:47→21:25)
[2017-08-26] MEDS: PROTONIX PO SCH (09:48)
[2017-08-26] MEDS: LOPRESSOR PO SCH ×2 (09:48→21:04)
--- NOTE | 2017-08-26 10:16 | Progress Note ---
Assessment and Plan Acute Kidney injury possible pre renal vs cardiorenal. Chronic Kidney disease stage 3: -BL Cr around 1.6 to 1.7 -Possibly may have CKD from from HTN/DM or from lupus. -Has had protein on Urine -TTE shows LVEF 40-45%. -Cr slightly down. -s/p Cardiac cath yesterday. Got pre and post contrast IVFs and Mucomyst to decrease EDITH risk. Will be on the lookout for EDITH -IVFs now stopped. CXR shows slight congestion, restart lasix 40 mg daily IV. -Renally dose all meds and avoid nephrotoxic meds -Ordered Complement levels, Anti DsDNA. UA showed some protein but no red cells. Complement levels WNLs. -Pt may need ARB to protect kidney from DM but this can be done outpatient once renal function stable. Partial Small bowel obstruction: -On CT -Per primary and GS -Having BM and eating now. Acute on chronic systolic congestive heart failure: Coronary artery disease: -TTE shows LVEF 40-45%, CXR congested. -Restart Lasix. -Cath shows CAD, plan for tx to [place] for higher level of care per primary/ Cards. Essential hypertension: -Titrate BP meds to keep SBP <130/80 -Avoid ARBs, Yevgeniy inh for now Anemia of chronic disease: -Start Epogen to keep Hg 10-12 -Transfuse PRN per primary Diabetes mellitus type 2 on insulin: -On ISS -Per primary Hyperlipidemia, chronic: -Statin -Target LDL <80 Nimesh Dotson MD Nephrology, Hypertension, Dialysis, Transplantation Phone no: [phone] Subjective Date of service: 08/26/17 Principal diagnosis: abdominal pain Interval history: Denies CP/SHOB. s/p Cardiac cath yesterday. Objective - Exam Narrative Exam: GE: AAOX3 HEENT: PERRLA Neck: Supple Chest: Coarse BS BL CVS: RRR Abd: BS+ Ext: No cce Psyche: Appropriate mood - Vital Signs Vital signs: Vital Signs - 12hr 08/25/17 08/25/17 08/26/17 22:40 23:59 03:57 Temperature 98.8 F 98.6 F Pulse Rate 90 63 58 L Respiratory 18 18 Rate Blood Pressure 132/63 113/60 Blood Pressure [Right] O2 Sat by Pulse 96 98 Oximetry 08/26/17 08/26/1708/26/17 08:25 09:47 09:48 Temperature 98.9 F Pulse Rate 61 61 61 Respiratory 18 Rate Blood Pressure 123/67 123/67 Blood Pressure 123/67 [Right] O2 Sat by Pulse 97 Oximetry - Lab 08/25/17 06:28 08/26/17 10:20 Most recent lab results Calcium 8.3 mg/dL (8.4-10.2) L 08/25/17 04:49 Magnesium 1.90 mg/dL (1.7-2.3) 08/24/17 15:28 Urine Creatinine 53.2 mg/dL (0.1-20.0) H 08/18/17 14:58 Urine Sodium 118 mmol/L 08/18/17 14:58
--- NOTE | 2017-08-26 11:25 | XRay Report ---
AP CHEST : 08/26/17 CLINICAL: Followup congestion. COMPARISON:08/21/17 FINDINGS: Stable mild cardiomegaly and central vascular congestion. Lung markings are increased compared to the prior exam but this may be related to differences in technique. No pulmonary consolidation. No pleural effusion. The bones and soft tissues are unremarkable. IMPRESSION: Mild CHF. Considering differences in technique, probably no change.
[2017-08-26 11:41] LABS: Calcium 8.4 mg/dL (8.4-10.2); Chloride 99.9 mmol/L (98-107)
[2017-08-26 11:44] LABS: Calcium 8.1 mg/dL (8.4-10.2); Chloride 100.1 mmol/L (98-107); Potassium 3.6 mmol/L (3.6-5.0)
--- NOTE | 2017-08-26 13:07 | Progress Note ---
Assessment and Plan Chest Pain Cardiac cath findings: 1. Severe complex bifurcation stenosis of the mid circumflex. 2. LAD and RCA without severe lesions. Systemic Hypertension Type II DM Chronic renal failure Peripheral vascular disease s/p [employer] Small bowel obstruction (history of subtotal colectomy) Microcytic anemia Plan: For transfer to [place] for revascularization options; patient is HIGH RISK for ATN. Subjective Date of service: 08/26/17 Principal diagnosis: abdominal pain Interval history: Patient has no complaints. Objective Vital Signs Temp Pulse Resp BP BP Pulse Ox 08/26/17 12:19 64 97/55 99 08/26/17 11:01 98 08/26/17 10:25 59 L 08/26/17 09:48 61 123/67 08/26/17 09:47 61 123/67 08/26/17 08:25 98.9 F 61 18 123/67 97 08/26/17 07:57 60 100 08/26/17 03:57 98.6 F 58 L 18 113/60 98 08/25/17 23:59 98.8 F 63 18 132/63 96 08/25/17 22:40 90 08/25/17 19:42 98.5 F 66 18 143/74 99 08/25/17 18:23 75 08/25/17 17:02 99 08/25/17 16:39 66 147/70 08/25/17 14:46 66 18 147/74 100 08/25/17 14:38 87.7 F L 74 18 155/80 100 08/25/17 14:34 98.6 F 73 20 184/87 100 - Physical Examination General: No Apparent Distress HEENT: Positive: PERRL Cardiac: Positive: Reg Rate and Rhythm Neuro: Positive: Grossly Intact Extremities: Absent: edema - Labs and Meds Comprehensive Metabolic Panel 08/26/17 08/26/17 Range/Units 10:20 10:20 Sodium 141 141 (137-145) mmol/L Potassium 4.0 3.6 (3.6-5.0) mmol/L Chloride 99.9 100.1 (98-107) mmol/L Carbon Dioxide 26 25 (22-30) mmol/L BUN 37 H 36 H (7-17) mg/dL Creatinine 2.1 H 2.1 H (0.7-1.2) mg/dL Glucose 131 H 128 H (65-100) mg/dL Calcium 8.4 8.1 L (8.4-10.2) mg/dL
--- NOTE | 2017-08-26 14:39 | Event Note ---
Date: 08/26/17 Patient's creatinine is 2.1 today, stable and unchanged following the cardiac catheterization procedure yesterday. Due to high risk of contrast nephropathy, and anticipated large volume of contrast for interventional therapy of the patient's complex bifurcation circumflex disease, she will be referred to [place] for further evaluation of revascularization options. [place] transfer to the service of Dr. Mcgee
[2017-08-26] MEDS: LASIX IV SCH (14:44)
[2017-08-26] MEDS ORDERED: NORCO 10/325 PO PRN (15:13)
--- NOTE | 2017-08-26 16:45 | Discharge Summary ---
Providers - Providers Date of Admission: 08/17/17 09:57 Attending physician: ELIDA DHALIWAL MD 08/17/17 09:53 Consult to Physician [CONS] Urgent Consulting Provider: MIMI LEE Reason For Exam: small bowel obstruction Place consult to:: phone Notified:: y 08/17/17 12:41 Consult to Physician [CONS] Routine Consulting Provider: LUCY FAJARDO Reason For Exam: AAAKI, HX OF NEPHRECTOMY Place consult to:: nephrology Notified:: yes Phone number called:: [phone] Time called:: 06:55 Comment:: DR fajardo spoke with Rn Patsy 08/19/17 12:10 Consult to Cardiology [CONS] Routine Consulting Provider: TARIK JARA Reason For Exam: chf 08/19/17 16:05 Consult to Physician [CONS] Routine Consulting Provider: GEREMIAS CASH Reason For Exam: abdominal pain Place consult to:: [facility] Notified:: DR. CASH Phone number called:: IN HOUSE Was contact made?: Yes If yes, spoke with:: DR. Pedrito CASH Time called:: 16:14 08/25/17 14:14 Consult to Cardiac Rehabilitation [CONS] Routine Reason For Exam: Cardiac Rehab Evaluation 08/26/17 09:09 Physical Therapy Evaluation and Treat [CONS] Routine Comment: Reason For Exam: deconditioning/discharge recommends 08/26/17 09:10 Occupational Therapy Evaluate and Treat [CONS] Routine Comment: Reason For Exam: deconditioning/discharge recommends Primary care physician: SATURATOR Hospitalization Condition: Fair Hospital course: 57-year-old -[place] female with past medical history significant for hypertension, diabetes, lupus presented with abdominal pain. She had partial small bowel obstruction that was managed conservatively after which it resolved. She also suffered from chest pain, given history of coronary artery disease she went on to have cardiac catheterization which showed complex ischemia that was not amenable by stenting. Given that she also has chronic kidney disease she was then transferred to [place] for management of revascularization. She received cardiology and nephrology comanagement while in hospital. Discharge diagnosis Chest pain due to angina/coronary artery disease Chronic systolic CHF Partial small bowel obstruction Acute on chronic kidney disease due to vasomotor nephropathy Diabetes mellitus History of lupus not in exacerbation Disposition: DC/TX-02 SHRT-TRM GEN HOSP IP Time spent for discharge: 33 minutes Core Measure Documentation - Palliative Care Palliative Care/ Comfort Measures: Not Applicable - Core Measures Any of the following diagnoses?: none Exam - Constitutional Vitals: Temp Pulse Resp BP Pulse Ox 98.9 F 64 18 97/55 99 08/26/17 08:25 08/26/17 12:19 08/26/17 08:25 08/26/17 12:19 08/26/17 12:19 General appearance: Present: no acute distress, well-nourished - EENT Eyes: Present: PERRL ENT: hearing intact, clear oral mucosa - Neck Neck: Present: supple, normal ROM - Respiratory Respiratory effort: normal Respiratory: bilateral: CTA - Cardiovascular Heart Sounds: Present: S1 & S2. Absent: rub, click - Extremities Extremities: pulses symmetrical, No edema Peripheral Pulses: within normal limits - Abdominal General gastrointestinal: Present: soft, non-tender, non-distended, normal bowel sounds Female genitourinary: Present: normal - Integumentary Integumentary: Present: clear, warm, dry - Musculoskeletal Musculoskeletal: gait normal, strength equal bilaterally - Psychiatric Psychiatric: appropriate mood/affect, intact judgment & insight - Neurologic Neurologic: CNII-XII intact, moves all extremities Plan Follow up with: PRIMARY CARE, [Primary Care Provider] - 3-5 Days
[2017-08-26] MEDS ORDERED: NACL 0.45% 1000 ML IV SCH (18:00)
[2017-08-26] MEDS ORDERED: NACL 0.45% 1000 ML 1,000 ML IV SCH (19:00)
[2017-08-26] MEDS: AMBIEN PO PRN (21:25)
[2017-08-27] MEDS: DILAUDID IV PRN (03:16)
[2017-08-27] MEDS: LASIX IV SCH (06:04)
[2017-08-27] MEDS: APRESOLINE PO SCH (06:04)
[2017-08-27 08:50] VITALS: BP 108/61
== END 2017-08-27 08:30 | disposition short-term general hospital (02) | DRG 286 ==
LOC: ED 05:37 → 3A 09:57 → 4A 08-19 17:11
PROVIDERS: ADMIT Internal Medicine; ATTEND Internal Medicine
PROC: 3E0234Z Introduction of Serum, Toxoid and Vaccine into Muscle, Percutaneous Approach (ICD-10-PCS; 2017-08-18)
PROC: 4A023N7 Measurement of Cardiac Sampling and Pressure, Left Heart, Percutaneous Approach (ICD-10-PCS; principal; 2017-08-25)
PROC: B2111ZZ Fluoroscopy of Multiple Coronary Arteries using Low Osmolar Contrast (ICD-10-PCS; 2017-08-25)
DX: I25.10 Atherosclerotic heart disease of native coronary artery without angina pectoris (principal); N17.0 Acute kidney failure with tubular necrosis; I50.23 Acute on chronic systolic (congestive) heart failure; K56.600 Partial intestinal obstruction, unspecified as to cause; I13.0 Hypertensive heart and chronic kidney disease with heart failure and stage 1 through stage 4 chronic kidney disease, or unspecified chronic kidney disease; E11.65 Type 2 diabetes mellitus with hyperglycemia; N18.3 Chronic kidney disease, stage 3 (moderate); M32.9 Systemic lupus erythematosus, unspecified; D63.8 Anemia in other chronic diseases classified elsewhere; E78.5 Hyperlipidemia, unspecified; E87.5 Hyperkalemia; E11.22 Type 2 diabetes mellitus with diabetic chronic kidney disease; Z23 Encounter for immunization; Z94.9 Transplanted organ and tissue status, unspecified; Z90.49 Acquired absence of other specified parts of digestive tract; Z90.710 Acquired absence of both cervix and uterus; Z88.2 Allergy status to sulfonamides; Z88.8 Allergy status to other drugs, medicaments and biological substances; Z79.82 Long term (current) use of aspirin; Z79.899 Other long term (current) drug therapy; Z79.4 Long term (current) use of insulin
CPT/HCPCS: 36415; 71010; 74000; 74176; 74250; 78452; 80048; 80053; 80061; 81001; 82140; 82550; 82553; 82570; 82962; 83550; 83690; 83735; 83880; 84300; 84484; 84520; 85025; 85027; 86160; 86225; 89050; 90471; 90686; 90732; 93005; 93010; 93017; 93306; 93454; A9270-GY; A9502; C1894; G0008; J0360; J0885; J1170; J1644; J1815; J1940; J2250; J2405; J2785; J2920; J3010; J7030; J7050; J7120; Q9963; Q9967

== ENCOUNTER 2018-12-01 16:14 | Outpatient (CLI) | payer MEDICARE ==
[2018-12-01 16:58] LABS: Hemoglobin 8.4 gm/dl (10.1-14.3); Mean Corpuscular HGB Conc 31 % (30-34); Mean Corpuscular Volume 71 fl (79-97); Platelet Count 309 K/mm3 (140-440); Red Blood Count 3.78 M/mm3 (3.65-5.03); Red Cell Distribution Width 17.1 % (13.2-15.2)
[2018-12-01 17:11] LABS: Bacteria,Urine 1+ /HPF (Negative); Bilirubin,Urine NEG (Negative); Blood,Urine NEG (Negative); Color,Urine Yellow (Yellow); Mucus,Urine FEW /HPF; Urobilinogen,Urine < 2.0 mg/dL (<2.0)
[2018-12-01 17:12] LABS: Creatinine,Urine 177.9 mg/dL (0.1-20.0); Protein/Creatinine Ratio,Urine 0.85
[2018-12-01 17:25] LABS: Albumin 3.8 g/dL (3.9-5); Calcium 8.6 mg/dL (8.4-10.2)
== END 2018-12-01 16:15 | disposition home or self-care (01) ==
LOC: LAB 16:14
PROVIDERS: ATTEND Internal Medicine Nephrology
DX: I12.9 Hypertensive chronic kidney disease with stage 1 through stage 4 chronic kidney disease, or unspecified chronic kidney disease (principal); N18.4 Chronic kidney disease, stage 4 (severe); E78.00 Pure hypercholesterolemia, unspecified; Z90.710 Acquired absence of both cervix and uterus; Z90.49 Acquired absence of other specified parts of digestive tract; Z87.891 Personal history of nicotine dependence
CPT/HCPCS: 36415; 80053; 81001; 82570; 83970; 84100; 84156; 85027

== ENCOUNTER 2019-07-09 15:04 | Outpatient (CLI) | payer MEDICARE ==
[2019-07-09 15:34] LABS: Basophils % (Auto) 0.6 % (0.0-1.8); Eosinophils # (Auto) 0.1 K/mm3 (0.0-0.4); Eosinophils % (Auto) 2.2 % (0.0-4.3); Hemoglobin 8.6 gm/dl (10.1-14.3); Lymphocytes % (Auto) 15.6 % (13.4-35.0); Mean Corpuscular HGB Conc 31 % (30-34); Mean Corpuscular Volume 79 fl (79-97); Monocytes # (Auto) 0.4 K/mm3 (0.0-0.8); Monocytes % (Auto) 7.1 % (0.0-7.3); Platelet Count 239 K/mm3 (140-440); Red Blood Count 3.55 M/mm3 (3.65-5.03); Red Cell Distribution Width 15.8 % (13.2-15.2)
[2019-07-09 15:42] LABS: Bilirubin,Urine NEG (Negative); Blood,Urine NEG (Negative); Color,Urine Yellow (Yellow); Urobilinogen,Urine < 2.0 mg/dL (<2.0)
[2019-07-09 16:16] LABS: Creatinine,Urine 190.3 mg/dL (0.1-20.0); Protein/Creatinine Ratio,Urine 0.81
[2019-07-09 16:21] LABS: Alanine Aminotransferase 6 units/L (7-56); Albumin 3.9 g/dL (3.9-5); BUN/Creatinine Ratio 11; Blood Urea Nitrogen 32 mg/dL (7-17); Calcium 8.3 mg/dL (8.4-10.2); Hemolysis Index 1; Iron 25 ug/dL (37-170); Total Iron Binding Capacity 268 mcg/dL (250-450)
== END 2019-07-09 15:05 | disposition home or self-care (01) ==
LOC: LAB 15:04
PROVIDERS: ATTEND Internal Medicine Nephrology
DX: I12.9 Hypertensive chronic kidney disease with stage 1 through stage 4 chronic kidney disease, or unspecified chronic kidney disease (principal); E11.22 Type 2 diabetes mellitus with diabetic chronic kidney disease; E11.51 Type 2 diabetes mellitus with diabetic peripheral angiopathy without gangrene; N18.4 Chronic kidney disease, stage 4 (severe); D63.1 Anemia in chronic kidney disease; E78.00 Pure hypercholesterolemia, unspecified; Z90.49 Acquired absence of other specified parts of digestive tract
CPT/HCPCS: 36415; 80053; 81001; 82570; 82728; 83550; 84100; 84156; 85025

== ENCOUNTER 2019-11-16 16:04 | Outpatient (CLI) | payer MEDICARE ==
[2019-11-16 16:26] LABS: Mean Corpuscular HGB Conc 31 % (30-34); Mean Corpuscular Volume 75 fl (79-97); Platelet Count 300 K/mm3 (140-440); Red Blood Count 4.76 M/mm3 (3.65-5.03)
[2019-11-16 16:29] LABS: Hematocrit 35.7 % (30.3-42.9); Hemoglobin 10.9 gm/dl (10.1-14.3); Red Cell Distribution Width 21.6 % (13.2-15.2)
[2019-11-16 16:33] LABS: Bilirubin,Urine NEG (Negative); Blood,Urine NEG (Negative); Color,Urine Yellow (Yellow); Urobilinogen,Urine < 2.0 mg/dL (<2.0)
[2019-11-16 16:43] LABS: Creatinine,Urine 182.3 mg/dL (0.1-20.0); Protein/Creatinine Ratio,Urine 1.06
[2019-11-16 16:52] LABS: Alanine Aminotransferase < 5 units/L (7-56); Albumin 4.2 g/dL (3.9-5); BUN/Creatinine Ratio 8; Blood Urea Nitrogen 25 mg/dL (7-17); Calcium 8.7 mg/dL (8.4-10.2); Hemolysis Index 4
== END 2019-11-16 16:05 | disposition home or self-care (01) ==
LOC: LAB 16:04
PROVIDERS: ATTEND Internal Medicine Nephrology
DX: N18.4 Chronic kidney disease, stage 4 (severe) (principal)
CPT/HCPCS: 36415; 80053; 81001; 82570; 83970; 84100; 84156; 85027

== ENCOUNTER 2020-11-22 14:19 | Outpatient (CLI) | payer MEDICARE ==
[2020-11-22 15:27] LABS: Erythrocyte Sedimentation Rate 24 mm/Hr (0-20)
[2020-11-22 15:33] LABS: Hematocrit 33.1 % (30.3-42.9); Hemoglobin 10.3 gm/dl (10.1-14.3); Mean Corpuscular HGB Conc 31 % (30-34); Mean Corpuscular Volume 77 fl (79-97); Platelet Count 306 K/mm3 (140-440)
[2020-11-22 15:36] LABS: Red Cell Distribution Width 25.8 % (13.2-15.2)
[2020-11-22 17:09] LABS: Anisocytosis 2+; Total Cells Counted 100
[2020-11-22 17:10] LABS: Dimorphic RBC Yes; Hypochromasia 1+; Schistocytes Rare; Spherocytes Rare
== END 2020-11-22 14:20 | disposition home or self-care (01) ==
LOC: LAB 14:19
PROVIDERS: ATTEND Specialist
DX: M31.6 Other giant cell arteritis (principal)
CPT/HCPCS: 36415; 85007; 85025; 85652; 86140